=== PATIENT | female | born 1965 | race Caucasian/White ===

== ENCOUNTER 2016-08-10 12:36 | Emergency (ER) | payer MEDICAID ==
[~2016-08-10] VITALS: Ht 162.6 cm; Wt 61.2 kg
[2016-08-10 12:40] VITALS: BP 136/92; PULSE 115; RESP 22; TEMP 97.8; O2SAT 100
--- NOTE | 2016-08-10 12:44 | NUR ---
Pt placed to ER bed 04. Pt report given to JOSE Schilling.
--- NOTE | 2016-08-10 12:50 | NUR ---
ER at bedside examining patient.
--- NOTE | 2016-08-10 12:55 | NUR ---
Pt presents to ED c/o vomiting x 2 days with h/o etoh abuse.Pt vomited x 1 stomach content noted. pt ambulated w/o assist.
[2016-08-10] MEDS ORDERED: DEXAMETHASONE SOD PHOSPHATE 10 MG/ML VIAL IVP ONE (13:00)
[2016-08-10] MEDS ORDERED: ONDANSETRON HCL 4 MG/2 ML VIAL IVP ONE (13:00)
[2016-08-10] MEDS ORDERED: NACL 0.9% 1,000 ML IV ONE (13:00)
[2016-08-10] MEDS ORDERED: PROCHLORPERAZINE EDISYLATE 10 MG/2 ML VIAL IVP ONE (13:00)
[2016-08-10] MEDS ORDERED: LORazepam 2 MG/ML VIAL (FOR ER USE) IVP ONE (13:00)
[2016-08-10 13:15] LABS: BILIRUBIN,URINE 1+ (NEGATIVE); BLOOD, URINE 3+ (NEGATIVE); COLOR,URINE YELLOW (YELLOW); GLUCOSE,URINE NEGATIVE (NEGATIVE); KETONES,URINE 3+ (NEGATIVE); LEUKOCYTE ESTERASE ,URINE NEGATIVE (NEGATIVE); NITRITE, URINE POSITIVE (NEGATIVE); PROTEIN URINE 3+ (NEGATIVE)
[2016-08-10 13:22] LABS: CLARITY/URINE HAZY (CLEAR)
[2016-08-10 13:32] LABS: BACTERIA,URINE MANY /HPF (None Seen); MUCUS,URINE 1+ /LPF (None Seen)
[2016-08-10 13:33] LABS: BASOPHILS % (AUTO) 0.9 % (0.0-2.0); EOSINOPHILS % (AUTO) 0.3 % (0.0-4.0); HEMATOCRIT 49.4 % (36-48); HEMOGLOBIN 16.8 g/dL (12.0-16.0); LYMPHOCYTES # (AUTO) 1.4 K/uL (1.0-5.5); LYMPHOCYTES % (AUTO) 29.7 % (20.5-51.5); MEAN CORPUSCULAR HEMOGLOBIN 36 pg (27-31); MEAN CORPUSCULAR HGB CONC 34 % (32-36); MEAN CORPUSCULAR VOLUME 105 fL (79.0-98.0); MONOCYTES # (AUTO) 0.4 K/uL (0.0-1.0); MONOCYTES % (AUTO) 8.6 % (1.7-9.3); NEUTROPHILS # (AUTO) 2.9 K/uL (1.8-7.7); NEUTROPHILS % (AUTO) 60.5 % (40.0-70.0); PLATELET COUNT (AUTO) 170 K/uL (130-430); RED BLOOD CELL COUNT(AUTO) 4.72 MIL/uL (4.2-6.2); RED CELL DISTRIBUTION WIDTH 14.7 % (9.0-15.0); WHITE BLOOD COUNT (AUTO) 4.7 K/uL (4.8-10.8)
[2016-08-10 13:42] LABS: CALCIUM 8.2 mg/dL (8.4-11.0); CREATININE 0.73 mg/dL (0.55-1.30)
[2016-08-10 13:46] LABS: ALBUMIN 4.2 g/dL (3.4-4.8); TOTAL BILIRUBIN 0.7 mg/dL (0.0-1.0)
--- NOTE | 2016-08-10 14:00 | NUR ---
Pt medicated tolerated well.Pt reports to nausea and pain resolved.
[2016-08-10] MEDS ORDERED: POTASSIUM CHLORIDE 20 MEQ TAB.PRT.SR PO ONE (14:45)
[2016-08-10 15:10] VITALS: BP 121/74; PULSE 89; RESP 18; TEMP 97.3; O2SAT 100
--- NOTE | 2016-08-10 15:10 | NUR ---
Patient given written and verbal discharge instructions and verbalizes understanding. ER MD discussed with patient the results and treatment provided. Given copies of tests performed in ER. Patient in stable condition. ID arm band removed. IV catheter removed intact and dressing applied, no active bleeding. Rx of ZOFRAN,MACROBID given. Patient educated on pain management and to follow up with PMD. Pain Scale 0. Opportunity for questions provided and answered.
== END 2016-08-10 15:10 | disposition home or self-care (01) ==
LOC: SED 12:36
DX: N39.0 Urinary tract infection, site not specified (principal); F10.20 Alcohol dependence, uncomplicated; E78.00 Pure hypercholesterolemia, unspecified; F41.9 Anxiety disorder, unspecified
CPT/HCPCS: 36415; 80053; 81000; 82150; 83690; 85025; 87086; 93005; 96361; 96374; 96375; 99285; J0780; J1100; J2060; J2405; J7030

== ENCOUNTER 2016-09-20 14:37 | Inpatient (IN) | payer MEDICAID ==
[~2016-09-20] VITALS: Ht 165.1 cm; Wt 65.3 kg
[2016-09-20 14:37] VITALS: BP 103/69; PULSE 71; RESP 18; TEMP 97.7; O2SAT 99
--- NOTE | 2016-09-20 14:37 | NUR ---
Patient to ER bed 05 to gown for evaluation. Side rails up. Report given to JOSE Almazan.
--- NOTE | 2016-09-20 14:50 | NUR ---
Dr. Ramesh at bedside for evaluation
--- NOTE | 2016-09-20 15:01 | NUR ---
recieved Pt in bed 5. Pt stated she has been drinking more than 4 beers and 4 shots of scotch. Slow, slurred speech noted. Pt unable to keep eyes open. Pt c/o aching pain of a 10/10 on lower right buttock region. Pt denies falling down.
[2016-09-20 15:18] LABS: BASOPHILS % (AUTO) 0.8 % (0.0-2.0); EOSINOPHILS % (AUTO) 0.6 % (0.0-4.0); HEMATOCRIT 41.8 % (36-48); HEMOGLOBIN 13.9 g/dL (12.0-16.0); LYMPHOCYTES # (AUTO) 2.1 K/uL (1.0-5.5); LYMPHOCYTES % (AUTO) 51.7 % (20.5-51.5); MEAN CORPUSCULAR HEMOGLOBIN 35 pg (27-31); MEAN CORPUSCULAR HGB CONC 33 % (32-36); MEAN CORPUSCULAR VOLUME 105 fL (79.0-98.0); MONOCYTES # (AUTO) 0.3 K/uL (0.0-1.0); MONOCYTES % (AUTO) 7.2 % (1.7-9.3); NEUTROPHILS # (AUTO) 1.6 K/uL (1.8-7.7); NEUTROPHILS % (AUTO) 39.7 % (40.0-70.0); PLATELET COUNT (AUTO) 230 K/uL (130-430); RED BLOOD CELL COUNT(AUTO) 3.98 MIL/uL (4.2-6.2)
--- NOTE | 2016-09-20 15:20 | NUR ---
Pt transported to radiology for CT abd.
--- NOTE | 2016-09-20 15:35 | NUR ---
Pt returned from radiology
[2016-09-20 16:04] LABS: BILIRUBIN,URINE NEGATIVE (NEGATIVE); BLOOD, URINE 1+ (NEGATIVE); CLARITY/URINE HAZY (CLEAR); COLOR,URINE YELLOW (YELLOW); GLUCOSE,URINE NEGATIVE (NEGATIVE); KETONES,URINE TRACE (NEGATIVE); LEUKOCYTE ESTERASE ,URINE NEGATIVE (NEGATIVE); NITRITE, URINE POSITIVE (NEGATIVE); PROTEIN URINE TRACE (NEGATIVE); UROBILINOGEN,URINE 0.2 (0.2-1.0)
[2016-09-20 16:13] LABS: BARBITURATE, URINE NEGATIVE (NEG <=200); BENZODIAZEPINE, URINE POSITIVE (NEG <=150); CANNABINOID, URINE NEGATIVE (NEG <=50); COCAINE, URINE NEGATIVE (NEG <=150); METHAMPHETAMINES SCREEN,URINE NEGATIVE (NEG <=500); OPIATE, URINE POSITIVE (NEG <=100); PHENCYCLIDINE SCREEN,URINE NEGATIVE (NEG <=25); UR TRICYCLIC ANTIDEPRESSANTS NEGATIVE (NEG <=300); URINE AMPHETAMINE NEGATIVE (NEG <=500); URINE METHADONE NEGATIVE (NEG <=200); URINE OXYCODONE SCREEN NEGATIVE (NEG <=100); URINE PROPOXYPHENE SCREEN NEGATIVE (NEG <=300)
[2016-09-20 16:16] LABS: CALCIUM 8.5 mg/dL (8.4-11.0); CREATININE 0.56 mg/dL (0.55-1.30); POTASSIUM 3.9 mmol/L (3.5-5.1)
[2016-09-20 16:21] LABS: ALBUMIN 4.1 g/dL (3.4-4.8); TOTAL BILIRUBIN 0.6 mg/dL (0.0-1.0)
[2016-09-20 16:28] LABS: BACTERIA,URINE MANY /HPF (None Seen); MUCUS,URINE 1+ /LPF (None Seen); WBC,URINE 0-3 /HPF (0-3)
--- NOTE | 2016-09-20 16:44 | NUR ---
Pt returned from CT. Addendum: 09/20/16 at 1644 by LEILA data entered in error. wrong Pt
[2016-09-20] MEDS ORDERED: NACL 0.9% 1,000 ML IV ONE (16:45)
[2016-09-20] MEDS ORDERED: cefTRIAXone 1 GM IVPB PREMIX 50 ML IV ONE (16:45)
[2016-09-20] MEDS ORDERED: KETOROLAC TROMETHAMINE 30 MG VIAL IVP ONE (17:00)
[2016-09-20] MEDS ORDERED: ONDANSETRON HCL 4 MG/2 ML VIAL IVP ONE (17:00)
--- NOTE | 2016-09-20 17:00 | NUR ---
Rounds Pt resting in bed. chest rise and fall noted.
[2016-09-20] MEDS ORDERED: chlordiazePOXIDE HCL 25 MG CAPSULE PO ONE (17:45)
[2016-09-20] MEDS ORDERED: BANANA BAG 1 EA, MVI 10 ML, THIAMINE HCL 100 MG, FOLIC ACID 1 MG, MAGNESIUM SULFATE 1 G... IV ONE ×5 (17:45)
[2016-09-20] MEDS ORDERED: PARO20TA51 PO (17:47)
[2016-09-20] MEDS ORDERED: LOVA40TA75 PO (17:47)
--- NOTE | 2016-09-20 18:05 | NUR ---
Pt sitting up in bed eating dinner. Pt stated pain medication was effective. Pt stated she does not need anything at the moment.
[2016-09-20] MEDS ORDERED: FOLIC ACID 1 MG, THIAMINE HCL 100 MG, MAGNESIUM SULFATE 1 GM, MVI 10 ML in NACL 0.9% 1,... IV ONE (18:30)
--- NOTE | 2016-09-20 19:00 | NUR ---
Patient will be admitted to care of Dr. Rajan. Admitted to Tele unit. Will go to room 116A. Summary report printed. Report given to admitting RN.
--- NOTE | 2016-09-20 19:12 | NUR ---
ADMISSION NOTE Received patient from ER via bharathi, received report from raul GARCIA. Patient admitted with diagnosis of UTI AND SEPSIS. Patient oriented to hospital routine, call light, toileting and safety-patient verbalized understanding.
[2016-09-20 19:14] VITALS: BP 119/75; PULSE 80; RESP 20; TEMP 96.7; O2SAT 97
[2016-09-20 20:54] VITALS: BP 136/79; PULSE 81; RESP 18; TEMP 97.9; O2SAT 95
--- NOTE | 2016-09-20 21:37 | NUR ---
Phoned paged DR Satinder Preston regarding pain medication / .
--- NOTE | 2016-09-20 21:42 | NUR ---
TOBIN BYRD ([employer] AC CHIEF PHYSICAL THERAPIST) SPOKE WITH DELVIN
--- NOTE | 2016-09-20 22:09 | NUR ---
paged (follow-up) Paged for Mele Stevenson. Dialed , s/w Maria Elena. Stated that Dr hill is on-call for Dr Rajan.
--- NOTE | 2016-09-20 22:35 | NUR ---
paged (follow-up) Second page for Mele Stevenson. Dialed , s/w [place]. Stated that Dr Velasquez is on-call for Dr Rajan.
[2016-09-20] MEDS: FOLIC ACID 1 MG, THIAMINE HCL 100 MG, MAGNESIUM SULFATE 1 GM, MVI 10 ML in NACL 0.9% 1,... IV SCH (22:38)
[2016-09-20] MEDS ORDERED: chlordiazePOXIDE HCL 25 MG CAPSULE PO PRN (23:00)
--- NOTE | 2016-09-20 23:15 | NUR ---
New orders spoke with MD DR Velasquez / .
[2016-09-20] MEDS: LORazepam 1 MG TABLET PO PRN (23:56)
[2016-09-20] MEDS: IBUPROFEN 800 MG TABLET PO PRN (23:56)
--- NOTE | 2016-09-20 23:59 | NUR ---
LORAZEPAM 2 MG PO given for agitation / .
[2016-09-21] VITALS (8 sets, daily range): BP systolic 120–143; BP diastolic 68–96; PULSE 69–102; RESP 18–20; TEMP 97.4–98.8; O2SAT 91–96
--- NOTE | 2016-09-21 | NUR ---
Motrin 800 mg po given for back pain / .
--- NOTE | 2016-09-21 | NUR ---
Patient awake alert assist out of bed to rest room fall measures implemented / .
[2016-09-21] MEDS: chlordiazePOXIDE HCL 25 MG CAPSULE PO PRN ×3 (01:06→15:38)
--- NOTE | 2016-09-21 01:23 | NUR ---
LIBRIUM 25 MG PO given for agitation as ordered / .
--- NOTE | 2016-09-21 05:36 | NUR ---
Patient resting this hour , verbally responsive assist for position chest movement symmetrical also unlabored safety measures implemented / .
[2016-09-21] MEDS: FOLIC ACID 1 MG, THIAMINE HCL 100 MG, MAGNESIUM SULFATE 1 GM, MVI 10 ML in NACL 0.9% 1,... IV SCH (06:47)
[2016-09-21 06:49] LABS: BASOPHILS % (AUTO) 0.7 % (0.0-2.0); EOSINOPHILS # (AUTO) 0.1 K/uL (0.0-0.4); EOSINOPHILS % (AUTO) 1.2 % (0.0-4.0); HEMOGLOBIN 12.1 g/dL (12.0-16.0); LYMPHOCYTES # (AUTO) 2.8 K/uL (1.0-5.5); LYMPHOCYTES % (AUTO) 60.3 % (20.5-51.5); MEAN CORPUSCULAR HEMOGLOBIN 36 pg (27-31); MEAN CORPUSCULAR HGB CONC 35 % (32-36); MEAN CORPUSCULAR VOLUME 105 fL (79.0-98.0); MONOCYTES # (AUTO) 0.3 K/uL (0.0-1.0); MONOCYTES % (AUTO) 5.8 % (1.7-9.3); NEUTROPHILS # (AUTO) 1.5 K/uL (1.8-7.7); PLATELET COUNT (AUTO) 154 K/uL (130-430); RED BLOOD CELL COUNT(AUTO) 3.34 MIL/uL (4.2-6.2); RED CELL DISTRIBUTION WIDTH 14.1 % (9.0-15.0); WHITE BLOOD COUNT (AUTO) 4.7 K/uL (4.8-10.8)
--- NOTE | 2016-09-21 06:51 | NUR ---
New IV start 22 Gauge to right hand IVF infusing as ordered ( banana bag ) .
[2016-09-21 06:58] LABS: CALCIUM 7.8 mg/dL (8.4-11.0); CREATININE 0.58 mg/dL (0.55-1.30); POTASSIUM 3.5 mmol/L (3.5-5.1)
[2016-09-21 07:02] LABS: ALBUMIN 3.5 g/dL (3.4-4.8); PHOSPHORUS 2.5 mg/dL (2.7-4.5); TOTAL BILIRUBIN 0.7 mg/dL (0.0-1.0); TOTAL PROTEIN, SERUM 5.7 g/dL (6.4-8.3)
--- NOTE | 2016-09-21 07:30 | NUR ---
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 iv access on right hand #22 with folivite iv infusion. no sob or distress noted. call light within reach. safety measures maintained. bed in low position. informed patient to call for any assistance. both hands shaky noted.
[2016-09-21] MEDS: LORazepam 1 MG TABLET PO PRN ×3 (08:50→21:12)
[2016-09-21] MEDS: IBUPROFEN 800 MG TABLET PO PRN ×2 (08:51→15:38)
--- NOTE | 2016-09-21 08:56 | NUR ---
DUE MEDICATION GIVEN OREDERED. MADE COMFORTABLE.
[2016-09-21] MEDS ORDERED: cefTRIAXone 1 GM in D5W 50 ML IV SCH ×2 (09:00→17:00)
--- NOTE | 2016-09-21 09:30 | NUR ---
Placed bedside commode in the room. assisted the patient to the commode, very unsteady and shaky. had large bm soft greenish brown stool noted.
--- NOTE | 2016-09-21 10:00 | NUR ---
REMOVED RIGHT AC. PER REQUEST OF THE PATIENT.
--- NOTE | 2016-09-21 10:59 | NUR ---
Bed linen changed. made comfortable. no pain or distress noted.
--- NOTE | 2016-09-21 11:45 | NUR ---
ROUNDS: PATIENT IS STABLE. NO PAIN NO AGITATION NOTED.
--- NOTE | 2016-09-21 12:43 | NUR ---
ASSISTED AT THE BEDSIDE COMMODE. ABLE TO VOID
--- NOTE | 2016-09-21 13:40 | NUR ---
ativan 2 mg po given
--- NOTE | 2016-09-21 13:45 | NUR ---
CALLED DR BYRD FOR ORDERS
--- NOTE | 2016-09-21 15:00 | NUR ---
DR LÓPEZ CAME AND EVALUATE THE PATIENT. AND MADE ORDERS.
--- NOTE | 2016-09-21 15:30 | NUR ---
LIBRUIM PO AND MOTRIN PO GIVEN. SALINE LOCK IV ACCESS
--- NOTE | 2016-09-21 16:19 | NUR ---
RESTING IN BED STABLE.
[2016-09-21] MEDS ORDERED: PARoxetine HCL 20 MG TABLET PO ONE (16:45)
[2016-09-21] MEDS: traMADol HCL HCL 50 MG TABLET (ULTRAM) PO PRN ×2 (16:48→21:13)
--- NOTE | 2016-09-21 17:06 | NUR ---
PATIENT IS STABLE BUT STILL BACK PAIN. TRAMADOL PO GIVEN. MADE COMFORTABLE.
--- NOTE | 2016-09-21 18:11 | NUR ---
able to walk to the hallway with assist maría GARCIA assisted to walk x 2. but unsteady. but stable.
--- NOTE | 2016-09-21 19:23 | NUR ---
sbar report given to incoming nurse Raza GARCIA
--- NOTE | 2016-09-21 20:15 | NUR ---
Patient awake alert assist out of bed to rest room , no SOB skin dry warm fall measures implemented & tolerated .
--- NOTE | 2016-09-21 23:12 | NUR ---
ULTRAM 50 MG PO administer for General pain / & helpful .
--- NOTE | 2016-09-21 23:23 | NUR ---
LORAZEPAM 2 MG PO given for agitation & helpful , assist patient as needed .
--- NOTE | 2016-09-21 23:55 | NUR ---
Hourly Rounding fall measures taken implemented & patient awake with call smith / .
[2016-09-22] MEDS: chlordiazePOXIDE HCL 25 MG CAPSULE PO PRN ×2 (01:27→09:27)
[2016-09-22 04:18] VITALS: BP 146/93; PULSE 72; RESP 18; TEMP 96.4; O2SAT 96
--- NOTE | 2016-09-22 04:29 | NUR ---
Patient awake on and off HOB elevated , assist for position change call smith with patient fall measures implemented no complaints made / .
--- NOTE | 2016-09-22 04:31 | NUR ---
LIBRIUM 25 MG PO administer and helpful for agitation , continue to monitor .
--- NOTE | 2016-09-22 05:41 | NUR ---
Patient awake assist up out of bed to rest room , ambulatory verbally indicative & Librium 25 mg helpful for anxiety / .
[2016-09-22] MEDS: LORazepam 1 MG TABLET PO PRN (06:33)
--- NOTE | 2016-09-22 07:35 | NUR ---
Initial Note Received patient from assistant shift supervisor nurse, patient is alert an oriented, no signs of distress, breathing is even and unlabored, patient is not complaining of any pain at this time, assessment complete, patient has a IV in her right hand, saline lock, reeducated patient on use of call light and to call if assistance is needed, patient verbalized understanding, call smith left in patient's hand, bed in lowest position, two side rails up, bed alarm on, fall precautions in place, will continue to monitor patient.
[2016-09-22 08:00] VITALS: BP 137/94; PULSE 83; RESP 16; TEMP 97.9; O2SAT 99
--- NOTE | 2016-09-22 08:15 | NUR ---
MEDICATIONS patient given morning medication, educated patient on potential side effect of morning med, patient verbalized understanding, no other needs at this time, instructed patient to use call light if assistance is needed, patient verbalized understanding, call smith left in patient's hand, bed in lowest position, two side rails up, bed alarm on, fall precautions in place, will continue to monitor patient.
[2016-09-22] MEDS ORDERED: PARoxetine HCL 20 MG TABLET PO SCH (09:00)
--- NOTE | 2016-09-22 09:25 | NUR ---
RN ROUNDS patient is lying in bed; patient states she is feeling anxious will give a prn medication, fall precautions in place, will continue to monitor patient.
[2016-09-22] MEDS: traMADol HCL HCL 50 MG TABLET (ULTRAM) PO PRN (09:45)
[2016-09-22] MEDS ORDERED: LEVO500T20 PO (09:48)
--- NOTE | 2016-09-22 11:10 | NUR ---
RN ROUNDS Patient is resting in bed, no signs of distress, no complaints of pain, no other needs at this time will continue to monitor, fall precautions in place.
[2016-09-22 11:20] VITALS: BP 137/94; PULSE 82; RESP 16; TEMP 98; O2SAT 98
--- NOTE | 2016-09-22 11:55 | NUR ---
D/C Patient Patient given medication reconciliation form and D/C instructions. Exit Care provided. Patient verbalized understanding. MD discussed with patient the results and treatment provided. Ambulatory with steady gait for discharge to home. Patient in stable condition, ID band removed. IV catheter removed, intact and dressing applied, no active bleeding. Rx of Librum given. Patient educated on pain management. All belongings sent with patient.
== END 2016-09-22 11:55 | disposition home or self-care (01) | DRG 775 ==
LOC: SED 14:37 → STU 18:29
PROVIDERS: ADMIT Internal Medicine; ATTEND Internal Medicine
DX: F10.229 Alcohol dependence with intoxication, unspecified (principal); F10.239 Alcohol dependence with withdrawal, unspecified; K76.0 Fatty (change of) liver, not elsewhere classified; N39.0 Urinary tract infection, site not specified; F41.9 Anxiety disorder, unspecified; F32.9 Major depressive disorder, single episode, unspecified; E78.5 Hyperlipidemia, unspecified; M54.5 Low back pain; E78.00 Pure hypercholesterolemia, unspecified; Z79.899 Other long term (current) drug therapy
CPT/HCPCS: 36415; 80053; 80307; 81000-TC; 83605; 83690-TC; 83735-TC; 84100-TC; 85025; 87040-TC; 87086; 87186-TC; 87230-TC; 96365; 96367; 96375; 99291; J0696; J1885; J2405; J3411; J3475; J3490; J7030; J7060

== ENCOUNTER 2016-10-14 13:08 | Emergency (ER) | payer MEDICAID ==
[~2016-10-14] VITALS: Ht 162.6 cm; Wt 63.5 kg
[~2016-10-14 13:08] MED LIST: LEVO500T20 PO; LOVA40TA75 PO; PARO20TA51 PO
[2016-10-14 13:24] VITALS: BP_SYST 114
[2016-10-14 14:33] LABS: BASOPHILS # (AUTO) 0.1 K/uL (0.0-0.2); EOSINOPHILS # (AUTO) 0.1 K/uL (0.0-0.4); MONOCYTES # (AUTO) 0.4 K/uL (0.0-1.0); WHITE BLOOD COUNT (AUTO) 4.5 K/uL (4.8-10.8)
[2016-10-14 14:40] LABS: CALCIUM 9.1 mg/dL (8.4-11.0); CREATININE 0.6 mg/dL (0.55-1.30); POTASSIUM 3.5 mmol/L (3.5-5.1)
[2016-10-14 14:45] LABS: ALBUMIN 4.4 g/dL (3.4-4.8); TOTAL BILIRUBIN 0.4 mg/dL (0.0-1.0); TOTAL PROTEIN, SERUM 7.5 g/dL (6.4-8.3)
[2016-10-14 14:49] LABS: BASOPHILS % (AUTO) 2.4 % (0.0-2.0); EOSINOPHILS % (AUTO) 2.1 % (0.0-4.0); HEMATOCRIT 41.2 % (36-48); LYMPHOCYTES # (AUTO) 2.3 K/uL (1.0-5.5); MEAN CORPUSCULAR HEMOGLOBIN 36 pg (27-31); MEAN CORPUSCULAR HGB CONC 34 % (32-36); MEAN CORPUSCULAR VOLUME 106 fL (79.0-98.0); MONOCYTES % (AUTO) 9.3 % (1.7-9.3); NEUTROPHILS # (AUTO) 1.6 K/uL (1.8-7.7); NEUTROPHILS % (AUTO) 35.2 % (40.0-70.0)
[2016-10-14 14:53] LABS: PLATELET COUNT (AUTO) 131 K/uL (130-430)
[2016-10-14 15:20] LABS: BLOOD, URINE 1+ (NEGATIVE); CLARITY/URINE HAZY (CLEAR); COLOR,URINE AMBER (YELLOW); GLUCOSE,URINE NEGATIVE (NEGATIVE); KETONES,URINE NEGATIVE (NEGATIVE); LEUKOCYTE ESTERASE ,URINE NEGATIVE (NEGATIVE); NITRITE, URINE NEGATIVE (NEGATIVE); PH,URINE 5.5 (5.0-8.0); PROTEIN URINE 2+ (NEGATIVE); UROBILINOGEN,URINE 0.2 (0.2-1.0)
[2016-10-14 15:36] LABS: BARBITURATE, URINE NEGATIVE (NEG <=200); BENZODIAZEPINE, URINE POSITIVE (NEG <=150); CANNABINOID, URINE NEGATIVE (NEG <=50); COCAINE, URINE NEGATIVE (NEG <=150); METHAMPHETAMINES SCREEN,URINE NEGATIVE (NEG <=500); OPIATE, URINE POSITIVE (NEG <=100); URINE AMPHETAMINE NEGATIVE (NEG <=500); URINE METHADONE NEGATIVE (NEG <=200)
[2016-10-14 15:37] LABS: BILIRUBIN,URINE NEGATIVE (NEGATIVE); PHENCYCLIDINE SCREEN,URINE NEGATIVE (NEG <=25); UR TRICYCLIC ANTIDEPRESSANTS NEGATIVE (NEG <=300); URINE OXYCODONE SCREEN NEGATIVE (NEG <=100); URINE PROPOXYPHENE SCREEN NEGATIVE (NEG <=300)
[2016-10-14 15:57] LABS: BACTERIA,URINE FEW /HPF (None Seen); CALCIUM OXALATE CRYSTALS,UR 30-50 /HPF (None Seen); MUCUS,URINE 3+ /LPF (None Seen)
[2016-10-14 16:50] VITALS: BP_SYST 120
== END 2016-10-14 16:50 | disposition home or self-care (01) ==
LOC: SED 13:08
DX: E86.0 Dehydration (principal); E78.00 Pure hypercholesterolemia, unspecified; F41.9 Anxiety disorder, unspecified; Z86.59 Personal history of other mental and behavioral disorders
CPT/HCPCS: 36415; 71010; 80053; 80307; 81000; 82140; 85025; 93970; 99285; G0482; J7040

== ENCOUNTER 2016-10-25 05:35 | Emergency (ER) | payer MEDICAID ==
[~2016-10-25] VITALS: Ht 165.1 cm; Wt 63.5 kg
[2016-10-25 05:38] VITALS: BP_SYST 158
[2016-10-25] MEDS ORDERED: AMOXICILLIN 500 MG CAPSULE PO ONE (06:00)
[2016-10-25] MEDS ORDERED: IPRATROPIUM BROM 0.5 MG/2.5 ML VIAL.NEB (ATROVENT) IH ONE (06:00)
[2016-10-25] MEDS ORDERED: PROMETHAZINE 6.25 MG/ CODEINE 10 MG/ 5 ML PO ONE (06:00)
[2016-10-25] MEDS ORDERED: NACL 0.9% 1,000 ML IV ONE (06:00)
[2016-10-25] MEDS ORDERED: methylPREDNISolone SOD SUCC/PF 62.5 MG/ML VIAL IVP ONE (06:00)
[2016-10-25] MEDS ORDERED: LevALBUTEROL HCL 1.25 MG/0.5 ML *CONC.* VIAL.NEB (XOPENEX CONC.) INH ONE ×2 (06:00→07:00)
[2016-10-25] MEDS ORDERED: methylPREDNISolone SOD SUCC/PF 62.5 MG/ML VIAL ONE (06:09)
[2016-10-25] MEDS ORDERED: chlordiazePOXIDE HCL 25 MG CAPSULE PO ONE (06:45)
[2016-10-25 07:03] LABS: BASOPHILS # (AUTO) 0.1 K/uL (0.0-0.2); BASOPHILS % (AUTO) 0.8 % (0.0-2.0); EOSINOPHILS % (AUTO) 0.1 % (0.0-4.0); HEMATOCRIT 36.8 % (36-48); HEMOGLOBIN 12.4 g/dL (12.0-16.0); LYMPHOCYTES # (AUTO) 3.5 K/uL (1.0-5.5); LYMPHOCYTES % (AUTO) 45.2 % (20.5-51.5); MEAN CORPUSCULAR HEMOGLOBIN 36 pg (27-31); MEAN CORPUSCULAR HGB CONC 34 % (32-36); MEAN CORPUSCULAR VOLUME 106 fL (79.0-98.0); MONOCYTES # (AUTO) 0.9 K/uL (0.0-1.0); MONOCYTES % (AUTO) 12.1 % (1.7-9.3); NEUTROPHILS # (AUTO) 3.3 K/uL (1.8-7.7); NEUTROPHILS % (AUTO) 41.8 % (40.0-70.0); PLATELET COUNT (AUTO) 252 K/uL (130-430); RED BLOOD CELL COUNT(AUTO) 3.46 MIL/uL (4.2-6.2); RED CELL DISTRIBUTION WIDTH 13.5 % (9.0-15.0); WHITE BLOOD COUNT (AUTO) 7.8 K/uL (4.8-10.8)
[2016-10-25 07:11] LABS: CALCIUM 8.7 mg/dL (8.4-11.0); CREATININE 0.66 mg/dL (0.55-1.30)
[2016-10-25 07:13] LABS: POTASSIUM 2.5 mmol/L (3.5-5.1)
[2016-10-25] MEDS ORDERED: POTASSIUM CHLORIDE 20 MEQ TAB.PRT.SR PO ONE (08:15)
[2016-10-25] MEDS ORDERED: KETOROLAC TROMETHAMINE 30 MG VIAL IVP ONE (08:30)
[2016-10-25] MEDS ORDERED: IBUPROFEN 800 MG TABLET PO ONE ×2 (08:30→08:45)
[2016-10-25 08:50] VITALS: BP_SYST 128
== END 2016-10-25 08:50 | disposition home or self-care (01) ==
LOC: SED 05:35
DX: J20.9 Acute bronchitis, unspecified (principal); J04.0 Acute laryngitis; E78.00 Pure hypercholesterolemia, unspecified; F41.9 Anxiety disorder, unspecified; F10.239 Alcohol dependence with withdrawal, unspecified; Y90.9 Presence of alcohol in blood, level not specified
CPT/HCPCS: 36415; 71010; 80048; 83880; 85025; 94640; 96361; 96374; 99285; J2930; J1885

== ENCOUNTER 2016-12-08 01:40 | Emergency (ER) | payer MEDICAID ==
[~2016-12-08] VITALS: Ht 165.1 cm; Wt 61.2 kg
[2016-12-08 02:14] VITALS: BP_SYST 108
--- NOTE | 2016-12-08 02:14 | NUR ---
Patient to ER bed 05 to gown for evaluation. Side rails up. Report given to JOSE Vázquez.
--- NOTE | 2016-12-08 02:15 | NUR ---
Patient AAO x4, sitting in bed c/o cough, shortness of breath from cough, and leg pain 5/10. Patient smells of alcohol and states she has been drinking alcohol "because of my leg pain," patient also states she "ran out of my librium, so I stopped taking them." Patient c/o bilateral leg swelling, no acute distress noted. Skin intact, denies chest pain, denies Nausea or vomiting. Will continue to monitor.
--- NOTE | 2016-12-08 02:18 | NUR ---
ER at bedside examining patient.
[2016-12-08] MEDS ORDERED: CHLO25CA10 PO (02:19)
[2016-12-08 02:42] LABS: BASOPHILS # (AUTO) 0.1 K/uL (0.0-0.2); EOSINOPHILS # (AUTO) 0.1 K/uL (0.0-0.4); EOSINOPHILS % (AUTO) 1.1 % (0.0-4.0); HEMATOCRIT 39.2 % (36-48); HEMOGLOBIN 13.2 g/dL (12.0-16.0); LYMPHOCYTES # (AUTO) 2.8 K/uL (1.0-5.5); LYMPHOCYTES % (AUTO) 37.1 % (20.5-51.5); MEAN CORPUSCULAR HEMOGLOBIN 35 pg (27-31); MEAN CORPUSCULAR HGB CONC 34 % (32-36); MEAN CORPUSCULAR VOLUME 104 fL (79.0-98.0); MONOCYTES # (AUTO) 0.3 K/uL (0.0-1.0); MONOCYTES % (AUTO) 3.8 % (1.7-9.3); NEUTROPHILS # (AUTO) 4.3 K/uL (1.8-7.7); PLATELET COUNT (AUTO) 170 K/uL (130-430); RED BLOOD CELL COUNT(AUTO) 3.75 MIL/uL (4.2-6.2); RED CELL DISTRIBUTION WIDTH 14.1 % (9.0-15.0); WHITE BLOOD COUNT (AUTO) 7.6 K/uL (4.8-10.8)
[2016-12-08 02:51] LABS: CALCIUM 9.2 mg/dL (8.4-11.0); CREATININE 0.61 mg/dL (0.55-1.30); POTASSIUM 4.1 mmol/L (3.5-5.1)
[2016-12-08 02:54] LABS: INR 0.8 (0.8-1.2); PROTHROMBIN TIME 9.1 SECS (9.5-12.5)
[2016-12-08 02:56] LABS: ALBUMIN 3.9 g/dL (3.4-4.8); TOTAL BILIRUBIN 0.2 mg/dL (0.0-1.0); TOTAL PROTEIN, SERUM 7.2 g/dL (6.4-8.3)
--- NOTE | 2016-12-08 03:18 | NUR ---
Patient resting quietly. No acute distress noted. Vital signs within normal range.
[2016-12-08 03:32] VITALS: BP_SYST 108
--- NOTE | 2016-12-08 03:32 | NUR ---
Patient given written and verbal discharge instructions and verbalizes understanding. ER MD discussed with patient the results and treatment provided. Patient in stable condition. ID arm band removed. Rx of Promethazine/dextromethorphan, Amoxicillin, and Librium given. Patient educated on pain management and to follow up with PMD. Pain Scale 0/10. Opportunity for questions provided and answered.
[2016-12-08] MEDS ORDERED: cefTRIAXone 1 GM VIAL ONE (15:48)
[2016-12-08] MEDS ORDERED: LIDOCAINE 1%, 20 ML MDV 20 ML ONE (15:49)
== END 2016-12-08 03:32 | disposition home or self-care (01) ==
LOC: SED 01:40
DX: J18.9 Pneumonia, unspecified organism (principal); F10.129 Alcohol abuse with intoxication, unspecified; E78.00 Pure hypercholesterolemia, unspecified; F17.200 Nicotine dependence, unspecified, uncomplicated; Z79.899 Other long term (current) drug therapy
CPT/HCPCS: 36415; 71010; 80053; 83880; 85025; 85610; 85730; 99285; G0482; J0696; J2001

== ENCOUNTER 2017-01-03 03:52 | Emergency (ER) | payer MEDICAID ==
[~2017-01-03] VITALS: Ht 162.6 cm; Wt 61.2 kg
[2017-01-03 03:52] VITALS: BP_SYST 96
[~2017-01-03 03:52] MED LIST changes: +CHLO25CA10 PO; -LEVO500T20 PO
[2017-01-03] MEDS ORDERED: NACL 0.9% 1,000 ML IV ONE (04:15)
[2017-01-03 06:54] VITALS: BP_SYST 110
== END 2017-01-03 06:54 | disposition home or self-care (01) ==
LOC: SED 03:52
DX: S69.92XA Unspecified injury of left wrist, hand and finger(s), initial encounter (principal); E78.00 Pure hypercholesterolemia, unspecified; F41.9 Anxiety disorder, unspecified; W01.0XXA Fall on same level from slipping, tripping and stumbling without subsequent striking against object, initial encounter; Y93.89 Activity, other specified; Y92.099 Unspecified place in other non-institutional residence as the place of occurrence of the external cause; Y99.8 Other external cause status
CPT/HCPCS: 29125; 73130; 96360; 99284; J7030

== ENCOUNTER 2017-04-22 11:45 | Inpatient (IN) | payer MEDICAID ==
[~2017-04-22] VITALS: Ht 165.1 cm; Wt 63.5 kg
[2017-04-22 11:45] VITALS: BP_SYST 108
[2017-04-22] MEDS ORDERED: THIAMINE HCL 100 MG/ML VIAL ONE (12:24)
[2017-04-22] MEDS ORDERED: MAGNESIUM SULFATE 1 GM/2 ML VIAL ONE (12:24)
[2017-04-22] MEDS ORDERED: FOLIC ACID 1 MG, THIAMINE HCL 100 MG, MAGNESIUM SULFATE 1 GM, MVI 10 ML in NACL 0.9% 1,... IV ONE (12:30)
[2017-04-22 12:34] LABS: BILIRUBIN,URINE NEGATIVE (NEGATIVE); CLARITY/URINE CLEAR (CLEAR); COLOR,URINE YELLOW (YELLOW); GLUCOSE,URINE NEGATIVE (NEGATIVE); KETONES,URINE 1+ (NEGATIVE); LEUKOCYTE ESTERASE ,URINE NEGATIVE (NEGATIVE); NITRITE, URINE NEGATIVE (NEGATIVE); PH,URINE 5.5 (5.0-8.0); PROTEIN URINE TRACE (NEGATIVE); UROBILINOGEN,URINE 0.2 (0.2-1.0)
[2017-04-22 12:35] LABS: BLOOD, URINE TRACE (NEGATIVE)
[2017-04-22 12:37] LABS: BASOPHILS % (AUTO) 0.8 % (0.0-2.0); EOSINOPHILS % (AUTO) 1.1 % (0.0-4.0); HEMATOCRIT 38.5 % (36-48); HEMOGLOBIN 13.2 g/dL (12.0-16.0); LYMPHOCYTES # (AUTO) 1.9 K/uL (1.0-5.5); LYMPHOCYTES % (AUTO) 44.6 % (20.5-51.5); MEAN CORPUSCULAR HEMOGLOBIN 36 pg (27-31); MEAN CORPUSCULAR HGB CONC 34 % (32-36); MEAN CORPUSCULAR VOLUME 105 fL (79.0-98.0); MONOCYTES # (AUTO) 0.4 K/uL (0.0-1.0); MONOCYTES % (AUTO) 8.8 % (1.7-9.3); NEUTROPHILS # (AUTO) 1.8 K/uL (1.8-7.7); NEUTROPHILS % (AUTO) 44.7 % (40.0-70.0); PLATELET COUNT (AUTO) 128 K/uL (130-430); RED BLOOD CELL COUNT(AUTO) 3.66 MIL/uL (4.2-6.2); RED CELL DISTRIBUTION WIDTH 13.9 % (9.0-15.0); WHITE BLOOD COUNT (AUTO) 4.1 K/uL (4.8-10.8)
[2017-04-22 12:52] LABS: BACTERIA,URINE RARE /HPF (None Seen); MUCUS,URINE 1+ /LPF (None Seen); WBC,URINE 0-3 /HPF (0-3)
[2017-04-22 12:55] LABS: BENZODIAZEPINE, URINE POSITIVE (NEG <=150)
[2017-04-22 12:56] LABS: BARBITURATE, URINE NEGATIVE (NEG <=200); CANNABINOID, URINE NEGATIVE (NEG <=50); COCAINE, URINE NEGATIVE (NEG <=150); METHAMPHETAMINES SCREEN,URINE NEGATIVE (NEG <=500); OPIATE, URINE NEGATIVE (NEG <=100); PHENCYCLIDINE SCREEN,URINE NEGATIVE (NEG <=25); UR TRICYCLIC ANTIDEPRESSANTS NEGATIVE (NEG <=300); URINE AMPHETAMINE NEGATIVE (NEG <=500); URINE METHADONE NEGATIVE (NEG <=200); URINE OXYCODONE SCREEN NEGATIVE (NEG <=100); URINE PROPOXYPHENE SCREEN NEGATIVE (NEG <=300)
[2017-04-22 13:02] LABS: ALANINE AMINOTRANSFERASE 125 U/L (12-78); ALBUMIN 3.8 g/dL (3.4-4.8); ANION GAP 17 (5-15); ASPARTATE AMINOTRANSFERASE 255 U/L (10-37); CALCIUM 8.7 mg/dL (8.4-11.0); CHLORIDE 100 mmol/L (98-107); GLUCOSE 77 mg/dL (70-99); POTASSIUM 3.1 mmol/L (3.5-5.1); SODIUM SERUM 144 mmol/L (136-145); TOTAL BILIRUBIN 0.9 mg/dL (0.0-1.0)
[2017-04-22 13:08] LABS: GFR AFRICAN AMERICAN 166 mL/min (>90)
[2017-04-22 13:09] LABS: ACETAMINOPHEN < 1 ug/mL (1-30)
[2017-04-22 13:13] LABS: UREA NITROGEN, BLOOD 9 mg/dL (8-21)
[2017-04-22 13:21] LABS: ALCOHOL, BLOOD 413 mg/dL (<10)
[2017-04-22] MEDS ORDERED: POTASSIUM CHLORIDE 20 MEQ TAB.PRT.SR PO ONE (13:45)
[2017-04-22] MEDS ORDERED: MAGNESIUM OXIDE 400 MG TABLET PO ONE (13:45)
[2017-04-22] MEDS ORDERED: HYDR-2470 PO (14:15)
[2017-04-22] MEDS ORDERED: [UNRECOGNIZED DRUG - CODE] PO (14:15)
[2017-04-22] MEDS ORDERED: HYDR50CA PO (14:15)
[2017-04-22] MEDS ORDERED: LORA-259 PO (14:15)
[2017-04-22] MEDS ORDERED: IBUP-1969 PO (14:15)
[2017-04-22 14:29] VITALS: BP_SYST 107
[2017-04-22 14:30] VITALS: BP_SYST 107
[2017-04-22] MEDS ORDERED: THIAMINE HCL 100 MG TABLET PO ONE (17:00)
[2017-04-22] MEDS ORDERED: chlordiazePOXIDE HCL 25 MG CAPSULE PO SCH (17:15)
[2017-04-22] MEDS ORDERED: POTASSIUM CHLORIDE 20 MEQ/PKT PACKET PO ONE (17:15)
[2017-04-22] MEDS ORDERED: LORazepam 1 MG TABLET PO SCH (17:15)
[2017-04-22] MEDS: FAMOTIDINE PF 20 MG/2 ML VIAL IVP SCH ×2 (18:00→18:25)
[2017-04-22] MEDS: ONDANSETRON HCL 4 MG/2 ML VIAL IVP PRN (18:02)
[2017-04-22] MEDS: IBUPROFEN 600 MG TABLET PO PRN (18:05)
[2017-04-22] MEDS: LR 1,000 ML IV SCH (18:14)
[2017-04-22] MEDS: LORazepam 2 MG/ML VIAL IVP PRN (18:28)
[2017-04-22 20:30] VITALS: BP_SYST 105
[2017-04-22] MEDS: POTASSIUM CHLORIDE 20 MEQ/PKT PACKET PO SCH (20:32)
[2017-04-22] MEDS: chlordiazePOXIDE HCL 25 MG CAPSULE PO SCH (20:33)
[2017-04-22] MEDS ORDERED: LEVOFLOXACIN 500 MG/D5W 100 ML IV SCH (21:00)
[2017-04-22] MEDS ORDERED: LEVOFLOXACIN 500 MG/D5W 100 ML IV ONE (23:00)
[2017-04-23] VITALS (7 sets, daily range): BP systolic 120–158
[2017-04-23] MEDS: LORazepam 2 MG/ML VIAL IVP PRN ×6 (00:40→23:27)
[2017-04-23] MEDS: LR 1,000 ML IV SCH ×2 (04:30→15:59)
[2017-04-23] MEDS: FAMOTIDINE PF 20 MG/2 ML VIAL IVP SCH ×3 (05:06→17:56)
[2017-04-23 06:35] LABS: BASOPHILS % (AUTO) 0.9 % (0.0-2.0); EOSINOPHILS # (AUTO) 0.1 K/uL (0.0-0.4); EOSINOPHILS % (AUTO) 1.4 % (0.0-4.0); HEMOGLOBIN 12.8 g/dL (12.0-16.0); LYMPHOCYTES # (AUTO) 1.5 K/uL (1.0-5.5); LYMPHOCYTES % (AUTO) 38.7 % (20.5-51.5); MEAN CORPUSCULAR HEMOGLOBIN 35 pg (27-31); MEAN CORPUSCULAR HGB CONC 34 % (32-36); MEAN CORPUSCULAR VOLUME 105 fL (79.0-98.0); MONOCYTES # (AUTO) 0.3 K/uL (0.0-1.0); MONOCYTES % (AUTO) 7.3 % (1.7-9.3); NEUTROPHILS # (AUTO) 1.9 K/uL (1.8-7.7); NEUTROPHILS % (AUTO) 51.7 % (40.0-70.0); PLATELET COUNT (AUTO) 118 K/uL (130-430); RED BLOOD CELL COUNT(AUTO) 3.63 MIL/uL (4.2-6.2); WHITE BLOOD COUNT (AUTO) 3.8 K/uL (4.8-10.8)
[2017-04-23 07:08] LABS: BILIRUBIN,URINE NEGATIVE (NEGATIVE); BLOOD, URINE NEGATIVE (NEGATIVE); CLARITY/URINE SL HAZY (CLEAR); COLOR,URINE YELLOW (YELLOW); GLUCOSE,URINE 1+ (NEGATIVE); KETONES,URINE 1+ (NEGATIVE); LEUKOCYTE ESTERASE ,URINE NEGATIVE (NEGATIVE); NITRITE, URINE NEGATIVE (NEGATIVE); PROTEIN URINE TRACE (NEGATIVE)
[2017-04-23 07:13] LABS: ALBUMIN 3.5 g/dL (3.4-4.8); CALCIUM 8.5 mg/dL (8.4-11.0); CREATININE 0.58 mg/dL (0.55-1.30); POTASSIUM 4.2 mmol/L (3.5-5.1); TOTAL BILIRUBIN 0.8 mg/dL (0.0-1.0)
[2017-04-23] MEDS: ONDANSETRON HCL 4 MG/2 ML VIAL IVP PRN ×2 (08:19→13:24)
[2017-04-23] MEDS: chlordiazePOXIDE HCL 25 MG CAPSULE PO SCH ×3 (08:21→20:40)
[2017-04-23] MEDS: PARoxetine HCL 20 MG TABLET PO SCH (08:21)
[2017-04-23] MEDS: FOLIC ACID 1 MG TABLET PO SCH (08:21)
[2017-04-23] MEDS: POTASSIUM CHLORIDE 20 MEQ/PKT PACKET PO SCH ×2 (08:21→20:41)
[2017-04-23] MEDS ORDERED: THIAMINE HCL 100 MG TABLET PO SCH (09:00)
[2017-04-23] MEDS: IBUPROFEN 600 MG TABLET PO PRN (13:24)
[2017-04-23] MEDS ORDERED: cloNIDine HCL 0.1 MG TABLET PO ONE (13:45)
[2017-04-23] MEDS: MULTIVITAMINS TAB 1 TABLET PO SCH (20:41)
[2017-04-23] MEDS: cloNIDine HCL 0.1 MG TABLET PO SCH (20:42)
[2017-04-24] MEDS: LORazepam 2 MG/ML VIAL IVP PRN ×4 (04:27→18:33)
[2017-04-24 04:30] VITALS: BP_SYST 147
[2017-04-24] MEDS: FAMOTIDINE PF 20 MG/2 ML VIAL IVP SCH ×2 (05:54→18:32)
[2017-04-24 08:00] VITALS: BP_SYST 144
[2017-04-24] MEDS: LR 1,000 ML IV SCH (08:48)
[2017-04-24] MEDS: POTASSIUM CHLORIDE 20 MEQ/PKT PACKET PO SCH ×2 (08:49→20:57)
[2017-04-24] MEDS: MULTIVITAMINS TAB 1 TABLET PO SCH ×2 (08:50→20:56)
[2017-04-24] MEDS: PARoxetine HCL 20 MG TABLET PO SCH (08:50)
[2017-04-24] MEDS: FOLIC ACID 1 MG TABLET PO SCH (08:50)
[2017-04-24] MEDS: chlordiazePOXIDE HCL 25 MG CAPSULE PO SCH ×3 (08:50→20:58)
[2017-04-24] MEDS: cloNIDine HCL 0.1 MG TABLET PO SCH ×2 (08:51→21:00)
[2017-04-24] MEDS ORDERED: THIAMINE HCL 100 MG TABLET PO SCH (09:00)
[2017-04-24] MEDS ORDERED: MULTIVITAMINS TAB 1 TABLET PO SCH (09:00)
[2017-04-24 12:19] VITALS: BP_SYST 127
[2017-04-24] MEDS ORDERED: LOPERAMIDE HCL 2 MG CAPSULE PO PRN (14:45)
[2017-04-24] MEDS ORDERED: LOPERAMIDE HCL 2 MG CAPSULE PO ONE (14:45)
[2017-04-24 15:27] LABS: BASOPHILS % (AUTO) 0.7 % (0.0-2.0); EOSINOPHILS # (AUTO) 0.1 K/uL (0.0-0.4); EOSINOPHILS % (AUTO) 2.3 % (0.0-4.0); HEMATOCRIT 39.8 % (36-48); HEMOGLOBIN 12.9 g/dL (12.0-16.0); LYMPHOCYTES # (AUTO) 1.7 K/uL (1.0-5.5); LYMPHOCYTES % (AUTO) 36.5 % (20.5-51.5); MEAN CORPUSCULAR HEMOGLOBIN 34 pg (27-31); MEAN CORPUSCULAR HGB CONC 32 % (32-36); MEAN CORPUSCULAR VOLUME 106 fL (79.0-98.0); MONOCYTES # (AUTO) 0.4 K/uL (0.0-1.0); MONOCYTES % (AUTO) 7.9 % (1.7-9.3); NEUTROPHILS # (AUTO) 2.3 K/uL (1.8-7.7); NEUTROPHILS % (AUTO) 52.6 % (40.0-70.0); PLATELET COUNT (AUTO) 133 K/uL (130-430); RED BLOOD CELL COUNT(AUTO) 3.76 MIL/uL (4.2-6.2); RED CELL DISTRIBUTION WIDTH 13.8 % (9.0-15.0); WHITE BLOOD COUNT (AUTO) 4.5 K/uL (4.8-10.8)
[2017-04-24 15:43] LABS: CALCIUM 9.4 mg/dL (8.4-11.0); CREATININE 0.64 mg/dL (0.55-1.30); POTASSIUM 4.2 mmol/L (3.5-5.1)
[2017-04-24 15:48] LABS: ALBUMIN 3.8 g/dL (3.4-4.8); TOTAL BILIRUBIN 0.7 mg/dL (0.0-1.0)
[2017-04-24 16:11] VITALS: BP_SYST 128
[2017-04-24 16:46] VITALS: BP_SYST 124
[2017-04-24 21:26] VITALS: BP_SYST 130
[2017-04-25] MEDS ORDERED: FOLIC ACID 1 MG TABLET PO SCH (09:00)
== END 2017-04-24 22:10 | disposition short-term general hospital (02) | DRG 775 ==
LOC: SED 11:45 → STU 13:57
PROVIDERS: ADMIT Internal Medicine; ATTEND Internal Medicine
DX: F10.229 Alcohol dependence with intoxication, unspecified (principal); F10.239 Alcohol dependence with withdrawal, unspecified; F33.2 Major depressive disorder, recurrent severe without psychotic features; K70.10 Alcoholic hepatitis without ascites; E87.6 Hypokalemia; F41.9 Anxiety disorder, unspecified; F17.210 Nicotine dependence, cigarettes, uncomplicated; E78.5 Hyperlipidemia, unspecified; Y90.8 Blood alcohol level of 240 mg/100 ml or more; Z79.899 Other long term (current) drug therapy; Z56.0 Unemployment, unspecified
CPT/HCPCS: 36415; 36600; 71010; 80053; 80307; 81000-TC; 81003; 81025; 82140-TC; 82803-TC; 83735-TC; 84443-TC; 85025; 87086; 93005; 96365; 97116-GP; 99285; G0480; G0481; G0482; J1956; J2060; J2405; J3411; J3475; J3490; J7030; J7060; J7120

== ENCOUNTER 2017-09-08 16:18 | Emergency (ER) | payer MEDICAID ==
[~2017-09-08] VITALS: Ht 170.2 cm; Wt 70.3 kg
[~2017-09-08 16:18] MED LIST changes: +HYDR-2470 PO; +IBUP-1969 PO; +LORA-259 PO; -LOVA40TA75 PO
[2017-09-08 16:20] VITALS: BP_SYST 98
[2017-09-08 16:47] LABS: HEMATOCRIT 40.3 % (36-48); MEAN CORPUSCULAR HEMOGLOBIN 37 pg (27-31); MEAN CORPUSCULAR HGB CONC 35 % (32-36); MEAN CORPUSCULAR VOLUME 106 fL (79.0-98.0); PLATELET COUNT (AUTO) 334 K/uL (130-430); RED BLOOD CELL COUNT(AUTO) 3.79 MIL/uL (4.2-6.2); RED CELL DISTRIBUTION WIDTH 13.7 % (9.0-15.0); WHITE BLOOD COUNT (AUTO) 8.6 K/uL (4.8-10.8)
[2017-09-08] MEDS ORDERED: GABA-531 PO (16:53)
[2017-09-08] MEDS ORDERED: LIP20 PO (16:58)
[2017-09-08] MEDS ORDERED: METO-442 PO (16:58)
[2017-09-08] MEDS ORDERED: NALT50TA PO (16:58)
[2017-09-08 17:00] LABS: ANION GAP 12 (5-15); CALCIUM 8.7 mg/dL (8.4-11.0); CHLORIDE 103 mmol/L (98-107); CREATININE 0.52 mg/dL (0.55-1.30); GLUCOSE 118 mg/dL (70-99); POTASSIUM 4.1 mmol/L (3.5-5.1); SODIUM SERUM 138 mmol/L (136-145); UREA NITROGEN, BLOOD 13 mg/dL (8-21)
[2017-09-08 17:01] LABS: PROTHROMBIN TIME 9.8 SECS (9.5-12.5)
[2017-09-08 17:09] LABS: BAND % (MANUAL) 1 % (0-6); LYMPHOCYTES % (MANUAL) 57 % (20-46); MONOCYTES % (MANUAL) 12 % (0-11)
[2017-09-08 17:10] LABS: EOSINOPHILS % (MANUAL) 1 % (0-7); GFR AFRICAN AMERICAN 159 mL/min (>90)
[2017-09-08 17:16] LABS: BASOPHILS % (MANUAL) 0 % (0-2)
[2017-09-08 17:18] LABS: ALANINE AMINOTRANSFERASE 51 U/L (12-78); ALBUMIN 3.4 g/dL (3.4-4.8); ASPARTATE AMINOTRANSFERASE 71 U/L (10-37); LIPASE 270 U/L (73-393); TOTAL BILIRUBIN 0.2 mg/dL (0.0-1.0)
[2017-09-08 17:21] LABS: HCG,QUANTITATIVE 4 mIU/ML (0-6)
[2017-09-08 17:22] LABS: ACETAMINOPHEN < 1 ug/mL (1-30)
[2017-09-08 17:29] LABS: ALCOHOL, BLOOD 442 mg/dL (<10)
[2017-09-08] MEDS: NACL 0.9% 1,000 ML IV ONE (17:59)
[2017-09-08] MEDS ORDERED: ONDANSETRON HCL 4 MG/2 ML VIAL ONE (18:36)
[2017-09-08] MEDS: ONDANSETRON HCL 4 MG/2 ML VIAL IVP ONE (18:47)
[2017-09-08] MEDS: FOLIC ACID 1 MG, THIAMINE HCL 100 MG, MAGNESIUM SULFATE 1 GM, MVI 10 ML in NACL 0.9% 1,... IV ONE (18:48)
[2017-09-08 20:21] VITALS: BP_SYST 101
== END 2017-09-08 20:21 | disposition home or self-care (01) ==
LOC: SED 16:18
DX: F10.129 Alcohol abuse with intoxication, unspecified (principal); E78.00 Pure hypercholesterolemia, unspecified; F41.9 Anxiety disorder, unspecified; Z79.899 Other long term (current) drug therapy; Y90.8 Blood alcohol level of 240 mg/100 ml or more
CPT/HCPCS: 36415; 51701; 80053; 82550; 83690; 84484; 84702; 85007; 85027; 85610; 85730; 96365; 96366; 96375; 99285; G0480; G0481; G0482; J2405; J3411; J3475; J3490; J7030

== ENCOUNTER 2018-03-19 14:41 | Inpatient (IN) | payer MEDICAID ==
[~2018-03-19] VITALS: Ht 162.6 cm; Wt 59.0 kg
[2018-03-19] VITALS (10 sets, daily range): BP systolic 68–126
[~2018-03-19 14:41] MED LIST changes: +ACET325T53 PO; +ATII2 IVP; +BUDE0.5A INH; -CHLO25CA10 PO; +DOCU-144 PO; +GABA-531 PO; -HYDR-2470 PO; -IBUP-1969 PO; +IPRA3AMP9 INH; +LIB25 PO; +LIP20 PO; -LORA-259 PO; +METO-442 PO; +NALT50TA PO; -PARO20TA51 PO; +PROI40 IVP
[2018-03-19] MEDS ORDERED: NACL 0.9% 1,000 ML IV ONE ×2 (15:00→17:15)
[2018-03-19] MEDS ORDERED: NALOXONE HCL 2 MG/2 ML SYR IVP ONE (15:00)
[2018-03-19 15:09] LABS: BASOPHILS # (AUTO) 0.1 K/uL (0.0-0.2); BASOPHILS % (AUTO) 0.9 % (0.0-2.0); EOSINOPHILS % (AUTO) 0.2 % (0.0-4.0); HEMATOCRIT 37.8 % (36-48); HEMOGLOBIN 12.5 g/dL (12.0-16.0); LYMPHOCYTES # (AUTO) 2.5 K/uL (1.0-5.5); LYMPHOCYTES % (AUTO) 34.3 % (20.5-51.5); MEAN CORPUSCULAR HEMOGLOBIN 33 pg (27-31); MEAN CORPUSCULAR HGB CONC 33 % (32-36); MEAN CORPUSCULAR VOLUME 100 fL (79.0-98.0); MONOCYTES # (AUTO) 0.4 K/uL (0.0-1.0); MONOCYTES % (AUTO) 5.4 % (1.7-9.3); NEUTROPHILS # (AUTO) 4.3 K/uL (1.8-7.7); NEUTROPHILS % (AUTO) 59.2 % (40.0-70.0); PLATELET COUNT (AUTO) 303 K/uL (130-430); RED CELL DISTRIBUTION WIDTH 13.7 % (9.0-15.0); WHITE BLOOD COUNT (AUTO) 7.3 K/uL (4.8-10.8)
[2018-03-19 15:18] LABS: CALCIUM 7.6 mg/dL (8.4-11.0); CREATININE 2.47 mg/dL (0.55-1.30); POTASSIUM 3.8 mmol/L (3.5-5.1)
[2018-03-19 15:20] LABS: INR 0.9 (0.8-1.2); PROTHROMBIN TIME 9.4 SECS (9.5-12.5)
[2018-03-19 15:22] LABS: ALBUMIN 2.9 g/dL (3.4-4.8); TOTAL BILIRUBIN 0.3 mg/dL (0.0-1.0)
[2018-03-19 15:46] LABS: BILIRUBIN,URINE NEGATIVE (NEGATIVE); BLOOD, URINE NEGATIVE (NEGATIVE); CLARITY/URINE CLEAR (CLEAR); COLOR,URINE YELLOW (YELLOW); GLUCOSE,URINE NEGATIVE (NEGATIVE); KETONES,URINE NEGATIVE (NEGATIVE); LEUKOCYTE ESTERASE ,URINE NEGATIVE (NEGATIVE); NITRITE, URINE NEGATIVE (NEGATIVE); PH,URINE 5.5 (5.0-8.0); PROTEIN URINE NEGATIVE (NEGATIVE); UROBILINOGEN,URINE 0.2 (0.2-1.0)
[2018-03-19] MEDS ORDERED: NACL 0.9% 1,000 ML IV STA (16:58)
[2018-03-19 17:59] LABS: BARBITURATE, URINE NEGATIVE (NEG <=200); BENZODIAZEPINE, URINE NEGATIVE (NEG <=150); COCAINE, URINE NEGATIVE (NEG <=150); METHAMPHETAMINES SCREEN,URINE NEGATIVE (NEG <=500); URINE AMPHETAMINE NEGATIVE (NEG <=500); URINE METHADONE NEGATIVE (NEG <=200)
[2018-03-19 18:00] LABS: CANNABINOID, URINE NEGATIVE (NEG <=50); OPIATE, URINE POSITIVE (NEG <=100); PHENCYCLIDINE SCREEN,URINE NEGATIVE (NEG <=25); UR TRICYCLIC ANTIDEPRESSANTS NEGATIVE (NEG <=300); URINE OXYCODONE SCREEN NEGATIVE (NEG <=100); URINE PROPOXYPHENE SCREEN NEGATIVE (NEG <=300)
[2018-03-19] MEDS ORDERED: NACL 0.9% 1,000 ML IV SCH (18:00)
[2018-03-19] MEDS: NACL 0.9% 1,000 ML IV SCH ×3 (18:08→20:34)
[2018-03-19] MEDS ORDERED: LORazepam 2 MG/ML VIAL IVP PRN ×2 (18:45→19:15)
[2018-03-19] MEDS: DIPHENHYDRAMINE HCL 25 MG CAPSULE PO SCH ×2 (18:45→20:31)
[2018-03-19] MEDS ORDERED: GABAPENTIN 300 MG CAPSULE PO PRN (19:15)
[2018-03-19] MEDS ORDERED: HYDROCORTISONE SOD SUCC 100 MG/2 ML VIAL IVP SCH (19:15)
[2018-03-19] MEDS ORDERED: THIAMINE HCL 100 MG in NS 50 ML IV SCH (19:30)
[2018-03-19 19:38] LABS: CREATININE 1.35 mg/dL (0.55-1.30); POTASSIUM 4.8 mmol/L (3.5-5.1)
[2018-03-19 19:48] LABS: CALCIUM 6.7 mg/dL (8.4-11.0)
[2018-03-19] MEDS: GABAPENTIN 300 MG CAPSULE PO SCH (20:30)
[2018-03-19] MEDS: LORazepam 1 MG TABLET PO SCH (20:31)
[2018-03-19] MEDS: chlordiazePOXIDE HCL 25 MG CAPSULE PO SCH (20:32)
[2018-03-19] MEDS: DOCUSATE SODIUM 100 MG CAPSULE PO SCH (20:32)
[2018-03-19] MEDS: CHOLECALCIFEROL (VITAMIN D3) 2,000 UNIT TABLET PO SCH (20:33)
[2018-03-19] MEDS: LR 1,000 ML IV SCH (20:35)
[2018-03-19] MEDS: PANTOPRAZOLE SODIUM 40 MG/VIAL (PROTONIX) IVP SCH (20:43)
[2018-03-19] MEDS: CALCIUM CARBONATE 500 MG/ TAB.CHEW PO SCH (20:43)
[2018-03-19] MEDS ORDERED: CALCIUM CARBONATE 500 MG/ TAB.CHEW PO SCH (21:00)
[2018-03-19] MEDS ORDERED: THIAMINE HCL 100 MG/ML VIAL ONE (23:06)
[2018-03-19] MEDS: IPRATROPIUM/ALBUTEROL SULFATE 3 ML AMPUL.NEB INH SCH (23:33)
[2018-03-20] VITALS (15 sets, daily range): BP systolic 94–129
[2018-03-20] MEDS ORDERED: HYDROCORTISONE SOD SUCC 100 MG/2 ML VIAL IVP SCH
[2018-03-20] MEDS: TEMAZEPAM 15 MG CAPSULE PO PRN ×2 (00:07→23:40)
[2018-03-20] MEDS: IPRATROPIUM/ALBUTEROL SULFATE 3 ML AMPUL.NEB INH SCH ×6 (03:51→23:00)
[2018-03-20] MEDS: LR 1,000 ML IV SCH ×2 (05:48→16:50)
[2018-03-20 06:20] LABS: BASOPHILS # (AUTO) 0.1 K/uL (0.0-0.2); BASOPHILS % (AUTO) 1.4 % (0.0-2.0); EOSINOPHILS % (AUTO) 0.1 % (0.0-4.0); HEMATOCRIT 35.3 % (36-48); LYMPHOCYTES # (AUTO) 1.1 K/uL (1.0-5.5); LYMPHOCYTES % (AUTO) 20.4 % (20.5-51.5); MEAN CORPUSCULAR HEMOGLOBIN 34 pg (27-31); MEAN CORPUSCULAR HGB CONC 34 % (32-36); MEAN CORPUSCULAR VOLUME 100 fL (79.0-98.0); MONOCYTES # (AUTO) 0.1 K/uL (0.0-1.0); MONOCYTES % (AUTO) 2.7 % (1.7-9.3); NEUTROPHILS % (AUTO) 75.4 % (40.0-70.0); PLATELET COUNT (AUTO) 217 K/uL (130-430); RED BLOOD CELL COUNT(AUTO) 3.52 MIL/uL (4.2-6.2); WHITE BLOOD COUNT (AUTO) 5.3 K/uL (4.8-10.8)
[2018-03-20 06:32] LABS: INR 0.9 (0.8-1.2); PROTHROMBIN TIME 9.6 SECS (9.5-12.5)
[2018-03-20 06:51] LABS: ALBUMIN 2.9 g/dL (3.4-4.8); CALCIUM 7.6 mg/dL (8.4-11.0); CREATININE 0.74 mg/dL (0.55-1.30); FREE T4 (FREE THYROXINE) 0.5 ng/dL (0.6-1.6); POTASSIUM 4.1 mmol/L (3.5-5.1); THYROID STIMULATING HORMONE 0.23 uIu/mL (0.34-4.82); TOTAL BILIRUBIN 0.5 mg/dL (0.0-1.0)
[2018-03-20] MEDS: chlordiazePOXIDE HCL 25 MG CAPSULE PO SCH ×3 (08:45→20:48)
[2018-03-20] MEDS: PANTOPRAZOLE SODIUM 40 MG/VIAL (PROTONIX) IVP SCH ×2 (08:45→20:48)
[2018-03-20] MEDS: CHOLECALCIFEROL (VITAMIN D3) 2,000 UNIT TABLET PO SCH (08:45)
[2018-03-20] MEDS: DIPHENHYDRAMINE HCL 25 MG CAPSULE PO SCH ×4 (08:46→20:49)
[2018-03-20] MEDS: LORazepam 1 MG TABLET PO SCH ×4 (08:46→20:49)
[2018-03-20] MEDS: ATORVASTATIN 20 MG TABLET PO SCH (08:46)
[2018-03-20] MEDS: GABAPENTIN 300 MG CAPSULE PO SCH ×2 (08:46→20:49)
[2018-03-20] MEDS: CALCIUM CARBONATE 500 MG/ TAB.CHEW PO SCH ×3 (08:46→20:49)
[2018-03-20] MEDS: DOCUSATE SODIUM 100 MG CAPSULE PO SCH ×2 (08:47→20:48)
[2018-03-20] MEDS ORDERED: THIAMINE HCL 100 MG TABLET PO SCH (09:00)
[2018-03-20] MEDS ORDERED: FOLIC ACID 1 MG TABLET PO SCH (09:00)
[2018-03-20] MEDS ORDERED: THIAMINE HCL 100 MG in NS 50 ML IV ONE (13:00)
[2018-03-21 00:12] VITALS: BP_SYST 111
[2018-03-21] MEDS: LR 1,000 ML IV SCH ×2 (00:45→04:43)
[2018-03-21] MEDS: IPRATROPIUM/ALBUTEROL SULFATE 3 ML AMPUL.NEB INH SCH ×4 (02:56→15:00)
[2018-03-21 07:07] LABS: BASOPHILS % (AUTO) 0.3 % (0.0-2.0); EOSINOPHILS # (AUTO) 0.1 K/uL (0.0-0.4); EOSINOPHILS % (AUTO) 1.3 % (0.0-4.0); HEMATOCRIT 33.3 % (36-48); HEMOGLOBIN 11.4 g/dL (12.0-16.0); LYMPHOCYTES # (AUTO) 2.2 K/uL (1.0-5.5); LYMPHOCYTES % (AUTO) 32.1 % (20.5-51.5); MEAN CORPUSCULAR HEMOGLOBIN 34 pg (27-31); MEAN CORPUSCULAR HGB CONC 34 % (32-36); MEAN CORPUSCULAR VOLUME 99 fL (79.0-98.0); MONOCYTES # (AUTO) 0.3 K/uL (0.0-1.0); MONOCYTES % (AUTO) 5.1 % (1.7-9.3); NEUTROPHILS # (AUTO) 4.2 K/uL (1.8-7.7); NEUTROPHILS % (AUTO) 61.2 % (40.0-70.0); PLATELET COUNT (AUTO) 174 K/uL (130-430); RED BLOOD CELL COUNT(AUTO) 3.38 MIL/uL (4.2-6.2); RED CELL DISTRIBUTION WIDTH 14.3 % (9.0-15.0); WHITE BLOOD COUNT (AUTO) 6.8 K/uL (4.8-10.8)
[2018-03-21 08:08] LABS: ALBUMIN 2.6 g/dL (3.4-4.8); CALCIUM 8.7 mg/dL (8.4-11.0); CREATININE 0.56 mg/dL (0.55-1.30); POTASSIUM 3.2 mmol/L (3.5-5.1); TOTAL BILIRUBIN 0.5 mg/dL (0.0-1.0)
[2018-03-21 08:29] VITALS: BP_SYST 125
[2018-03-21] MEDS ORDERED: THIAMINE HCL 100 MG TABLET PO SCH (09:00)
[2018-03-21] MEDS: DOCUSATE SODIUM 100 MG CAPSULE PO SCH (09:00)
[2018-03-21] MEDS ORDERED: FOLIC ACID 1 MG TABLET PO SCH (09:00)
[2018-03-21] MEDS: DIPHENHYDRAMINE HCL 25 MG CAPSULE PO SCH ×3 (09:17→17:10)
[2018-03-21] MEDS: GABAPENTIN 300 MG CAPSULE PO SCH (09:17)
[2018-03-21] MEDS: chlordiazePOXIDE HCL 25 MG CAPSULE PO SCH ×3 (09:17→17:10)
[2018-03-21] MEDS: PANTOPRAZOLE SODIUM 40 MG/VIAL (PROTONIX) IVP SCH (09:17)
[2018-03-21] MEDS: ATORVASTATIN 20 MG TABLET PO SCH (09:17)
[2018-03-21] MEDS: LORazepam 1 MG TABLET PO SCH ×3 (09:18→17:10)
[2018-03-21] MEDS: CHOLECALCIFEROL (VITAMIN D3) 2,000 UNIT TABLET PO SCH (09:18)
[2018-03-21] MEDS: CALCIUM CARBONATE 500 MG/ TAB.CHEW PO SCH ×2 (09:19→16:07)
[2018-03-21 12:10] VITALS: BP_SYST 146
[2018-03-21] MEDS ORDERED: POTASSIUM CHLORIDE 20 MEQ TAB.PRT.SR PO ONE (13:45)
[2018-03-21] MEDS ORDERED: amLODIPine BESYLATE 5 MG TABLET PO ONE (14:15)
[2018-03-21] MEDS ORDERED: AMLO5TAB4 PO (16:03)
[2018-03-21] MEDS ORDERED: POTA20TA83 PO (16:04)
[2018-03-21 16:15] VITALS: BP_SYST 160
[2018-03-21 18:11] VITALS: BP_SYST 156
[2018-03-21] MEDS ORDERED: POTASSIUM CHLORIDE 20 MEQ TAB.PRT.SR PO SCH (21:00)
[2018-03-22] MEDS ORDERED: amLODIPine BESYLATE 5 MG TABLET PO SCH (09:00)
== END 2018-03-21 18:48 | disposition home or self-care (01) | DRG 469 ==
LOC: SED 14:41 → SIC 16:58 → STU 03-20 16:31
PROVIDERS: ADMIT Internal Medicine; ATTEND Internal Medicine
DX: N17.0 Acute kidney failure with tubular necrosis (principal); E44.0 Moderate protein-calorie malnutrition; T78.2XXA Anaphylactic shock, unspecified, initial encounter; E83.51 Hypocalcemia; E78.5 Hyperlipidemia, unspecified; F10.10 Alcohol abuse, uncomplicated; F17.210 Nicotine dependence, cigarettes, uncomplicated; G89.29 Other chronic pain; I10 Essential (primary) hypertension; J44.9 Chronic obstructive pulmonary disease, unspecified; T46.4X5A Adverse effect of angiotensin-converting-enzyme inhibitors, initial encounter; Z79.891 Long term (current) use of opiate analgesic; Z82.49 Family history of ischemic heart disease and other diseases of the circulatory system; E78.00 Pure hypercholesterolemia, unspecified; E87.6 Hypokalemia; Z68.22 Body mass index [BMI] 22.0-22.9, adult
CPT/HCPCS: 36415; 71045; 80048; 80053; 80307; 81003; 82550-TC; 84439; 84443-TC; 84484; 85025; 85610-TC; 85730-TC; 87081; 93005; 93306; 94640; 96361; 96374; 99291; C9113; G0482; J1720; J2310; J3411; J7030; J7120; J7620; Q0163

== ENCOUNTER 2018-05-30 16:09 | Emergency (ER) | payer MEDICAID ==
[~2018-05-30] VITALS: Ht 162.6 cm; Wt 60.3 kg
[~2018-05-30 16:09] MED LIST changes: +AMLO5TAB4 PO; -ATII2 IVP; -LIB25 PO; +POTA20TA83 PO; -PROI40 IVP
[2018-05-30 16:34] VITALS: BP_SYST 141
--- NOTE | 2018-05-30 16:46 | NUR ---
Pt placed in bed 7
[2018-05-30] MEDS ORDERED: NACL 0.9% 1,000 ML IV ONE (16:54)
[2018-05-30] MEDS ORDERED: LORazepam 2 MG/ML VIAL (FOR ER USE) IVP ONE ×2 (17:00→19:45)
[2018-05-30] MEDS ORDERED: FOLIC ACID 1 MG, THIAMINE HCL 100 MG, MAGNESIUM SULFATE 1 GM, MVI 10 ML in NACL 0.9% 1,... IV ONE (17:00)
[2018-05-30] MEDS ORDERED: ONDANSETRON HCL 4 MG/2 ML VIAL IVP ONE (17:00)
--- NOTE | 2018-05-30 17:00 | NUR ---
Pt AAOx4 presents to ED c/o vomiting x 2 days r/t new prescription of antibiotics to treat dx of PNA from PMD. Pt currently showing generalized tremors; pt states "I drink heavily and I get like this when I haven't had a drink in a while." Skin dry and flaky. No other injuries/complaints per pt/noted. Will continue to monitor.
--- NOTE | 2018-05-30 17:30 | NUR ---
Banana bag IVF, NS 1 L IVF, Ativan 1mg IVP, Zofran 8mg IVP administered. Pt tolerated well. No adverse reactions noted.
--- NOTE | 2018-05-30 17:36 | NUR ---
Pt assisted to bedpan to give urine sample. Pt tolerated well.
[2018-05-30 17:56] LABS: BILIRUBIN,URINE NEGATIVE (NEGATIVE); BLOOD, URINE TRACE (NEGATIVE); CLARITY/URINE CLEAR (CLEAR); COLOR,URINE YELLOW (YELLOW); GLUCOSE,URINE NEGATIVE (NEGATIVE); KETONES,URINE TRACE (NEGATIVE); LEUKOCYTE ESTERASE ,URINE NEGATIVE (NEGATIVE); NITRITE, URINE NEGATIVE (NEGATIVE); PROTEIN URINE 2+ (NEGATIVE); UROBILINOGEN,URINE 0.2 (0.2-1.0)
[2018-05-30 18:00] LABS: BASOPHILS % (AUTO) 0.8 % (0.0-2.0); EOSINOPHILS % (AUTO) 0.5 % (0.0-4.0); HEMATOCRIT 43.2 % (36-48); HEMOGLOBIN 14.9 g/dL (12.0-16.0); LYMPHOCYTES # (AUTO) 1.1 K/uL (1.0-5.5); LYMPHOCYTES % (AUTO) 26.6 % (20.5-51.5); MEAN CORPUSCULAR HEMOGLOBIN 35 pg (27-31); MEAN CORPUSCULAR HGB CONC 34 % (32-36); MEAN CORPUSCULAR VOLUME 102 fL (79.0-98.0); MONOCYTES # (AUTO) 0.3 K/uL (0.0-1.0); MONOCYTES % (AUTO) 6.5 % (1.7-9.3); NEUTROPHILS # (AUTO) 2.7 K/uL (1.8-7.7); NEUTROPHILS % (AUTO) 65.6 % (40.0-70.0); PLATELET COUNT (AUTO) 192 K/uL (130-430); RED BLOOD CELL COUNT(AUTO) 4.23 MIL/uL (4.2-6.2); RED CELL DISTRIBUTION WIDTH 15.1 % (9.0-15.0); WHITE BLOOD COUNT (AUTO) 4.1 K/uL (4.8-10.8)
[2018-05-30 18:21] LABS: CALCIUM 7.9 mg/dL (8.4-11.0); CREATININE 0.45 mg/dL (0.55-1.30); POTASSIUM 3.4 mmol/L (3.5-5.1)
[2018-05-30 18:25] LABS: ALBUMIN 3.4 g/dL (3.4-4.8); PROTHROMBIN TIME 10.4 SECS (9.5-12.5); TOTAL BILIRUBIN 0.5 mg/dL (0.0-1.0)
[2018-05-30 18:30] LABS: BACTERIA,URINE FEW /HPF (None Seen); MUCUS,URINE None Seen /LPF (None Seen); WBC,URINE 0-3 /HPF (0-3); YEAST,URINE None Seen /HPF (None Seen)
--- NOTE | 2018-05-30 18:34 | NUR ---
Pt sleeping comfortably in bed with no signs of distress. Will continue to monitor.
--- NOTE | 2018-05-30 19:37 | NUR ---
Pt states she feels uneasy and presenting with tremors; pt requested another dose of Ativan to "calm her nerves." Nicole OFFICE MAIL CLERK notified. Orders to be received.
--- NOTE | 2018-05-30 20:00 | NUR ---
ATivan 1mg IVP administered. Pt tolerated well. No adverse reactions noted.
--- NOTE | 2018-05-30 20:12 | NUR ---
Patient given written and verbal discharge instructions and verbalizes understanding. ER ER RN BAUDILIO discussed with patient the results and treatment provided. Patient in stable condition. ID arm band removed. IV catheter removed intact and dressing applied, no active bleeding. NO Rx given. Patient educated on pain management and to follow up with PMD. Pain Scale 0. Opportunity for questions provided and answered. Medication side effect fact sheet provided.
[2018-05-30 21:01] VITALS: BP_SYST 127
== END 2018-05-30 21:01 | disposition home or self-care (01) ==
LOC: SED 16:09
DX: F10.239 Alcohol dependence with withdrawal, unspecified (principal); R11.10 Vomiting, unspecified; J18.9 Pneumonia, unspecified organism; F17.210 Nicotine dependence, cigarettes, uncomplicated; R03.0 Elevated blood-pressure reading, without diagnosis of hypertension; E78.00 Pure hypercholesterolemia, unspecified; F41.9 Anxiety disorder, unspecified; F32.9 Major depressive disorder, single episode, unspecified; Z88.8 Allergy status to other drugs, medicaments and biological substances; Z79.899 Other long term (current) drug therapy
CPT/HCPCS: 36415; 71045; 80053; 81000; 82150; 83690; 84702; 85025; 85610; 85730; 87040; 93005; 96365; 96375; 96376; 99284; J2060; J2405; J7030

== ENCOUNTER 2018-06-01 01:13 | Inpatient (IN) | payer MEDICAID ==
[2018-06-01] VITALS (8 sets, daily range): BP systolic 111–137
[~2018-06-01] VITALS: Ht 162.6 cm; Wt 60.3 kg
--- NOTE | 2018-06-01 01:15 | NUR ---
Patient to ED via ALS squad 64 with new onset seizure. 2 reported seizures in last two days. Hx of ETOH dependence. Patient had 2 minute witnessed tonic/clonic seizure. Postictal post seizure. GCS 14 on arrival. Bit tongue during onset. Bleeding controlled. No obvious deformities. -Trauma. Denies head, neck or back pain. Pupils PERRL. Denies illicit drug use. 20g to left forearm on arrival.
--- NOTE | 2018-06-01 01:15 | NUR ---
Patient to ER bed 2 to gown for evaluation. Side rails up. Report given to JOSE Orlando.
--- NOTE | 2018-06-01 01:16 | NUR ---
ED MD Rucker at bedside for medical evaluation.
[2018-06-01] MEDS ORDERED: NACL 0.9% 1,000 ML IV ONE (01:18)
[2018-06-01] MEDS ORDERED: LORazepam 2 MG/ML VIAL (FOR ER USE) IVP ONE (01:30)
[2018-06-01] MEDS ORDERED: PANTOPRAZOLE SODIUM 40 MG/VIAL (PROTONIX) IVP ONE (01:30)
[2018-06-01] MEDS ORDERED: LORazepam 1 MG TABLET PO ONE (01:30)
[2018-06-01] MEDS ORDERED: ONDANSETRON HCL 4 MG/2 ML VIAL IVP ONE (01:30)
[2018-06-01 01:41] LABS: BASOPHILS # (AUTO) 0.2 K/uL (0.0-0.2); BASOPHILS % (AUTO) 2.4 % (0.0-2.0); EOSINOPHILS % (AUTO) 0.4 % (0.0-4.0); HEMATOCRIT 43.3 % (36-48); HEMOGLOBIN 14.6 g/dL (12.0-16.0); LYMPHOCYTES # (AUTO) 2.5 K/uL (1.0-5.5); LYMPHOCYTES % (AUTO) 35.6 % (20.5-51.5); MEAN CORPUSCULAR HEMOGLOBIN 35 pg (27-31); MEAN CORPUSCULAR HGB CONC 34 % (32-36); MEAN CORPUSCULAR VOLUME 103 fL (79.0-98.0); MONOCYTES # (AUTO) 0.6 K/uL (0.0-1.0); MONOCYTES % (AUTO) 7.8 % (1.7-9.3); NEUTROPHILS # (AUTO) 3.8 K/uL (1.8-7.7); NEUTROPHILS % (AUTO) 53.8 % (40.0-70.0); PLATELET COUNT (AUTO) 181 K/uL (130-430); RED BLOOD CELL COUNT(AUTO) 4.21 MIL/uL (4.2-6.2); RED CELL DISTRIBUTION WIDTH 15.1 % (9.0-15.0); WHITE BLOOD COUNT (AUTO) 7.1 K/uL (4.8-10.8)
[2018-06-01 02:03] LABS: PROTHROMBIN TIME 10.5 SECS (9.5-12.5)
--- NOTE | 2018-06-01 02:06 | NUR ---
Critical lab value reported. Potassium level of 2.6. ED MD Rucker made aware.
[2018-06-01 02:08] LABS: ALBUMIN 3.9 g/dL (3.4-4.8); CALCIUM 8.6 mg/dL (8.4-11.0); CREATININE 0.79 mg/dL (0.55-1.30); TOTAL BILIRUBIN 0.8 mg/dL (0.0-1.0)
[2018-06-01 02:10] LABS: POTASSIUM 2.6 mmol/L (3.5-5.1)
--- NOTE | 2018-06-01 02:20 | NUR ---
ED MD Moraek at bedside reassessing patient.
[2018-06-01] MEDS ORDERED: KETOROLAC TROMETHAMINE 15 MG VIAL IVP ONE (02:30)
[2018-06-01] MEDS ORDERED: POTASSIUM CHLORIDE 20 MEQ TAB.PRT.SR PO ONE ×2 (02:30→10:15)
[2018-06-01] MEDS ORDERED: KCL 20 mEq in 100 mL (PREMIX) 100 ML IV ONE (02:30)
[2018-06-01] MEDS ORDERED: LORazepam 2 MG/ML VIAL IVP PRN (02:45)
--- NOTE | 2018-06-01 02:56 | NUR ---
Patient off unit for CT of head. Accompanied by radiology staff.
[2018-06-01] MEDS ORDERED: PHENYTOIN SODIUM INJ 500 MG in NS 100 ML IV SCH (03:00)
--- NOTE | 2018-06-01 03:05 | NUR ---
pt return from CT. Pt remains stable.
--- NOTE | 2018-06-01 03:11 | NUR ---
ADMISSION NOTE Received patient from ER via bharathi, received report from BIANCA GARCIA. Patient admitted with diagnosis of NEW ONSET SEIZURE. Patient oriented to hospital routine, call light, toileting and safety-patient verbalized understanding.
--- NOTE | 2018-06-01 03:11 | NUR ---
Patient will be admitted to care of Dr. Menchaca. Admitted to Telemetry unit. Will go to room 114A. Belongings list completed. Summary report printed. Report will be given at bedside. Transfer to telemetry via ACLS protocol. Licensed nurse present. IV present no signs or symptoms of infiltration.
--- NOTE | 2018-06-01 03:15 | NUR ---
RN Notes Patient A/O x 4. Pt on RA, breathing even and unlabored. K-rider infusing to LFA, no infiltration noted. Pt denies pain or any discomfort at this time. Seizure and aspiration precautions in place. No distress noted. Will continue to monitor.
--- NOTE | 2018-06-01 03:36 | NUR ---
CALLED DR. CABA FOR CONSULT @[phone]. SPOKE TO MARA. NURSE IS AWARE.
[2018-06-01] MEDS ORDERED: PHENYTOIN SODIUM 250 MG/5 ML INJ. VIAL IV ONE (03:52)
--- NOTE | 2018-06-01 04:45 | NUR ---
RN Notes Assisted patient to bedpan. Pt cleaned and helped reposition for comfort. Pt tolerated care well.
--- NOTE | 2018-06-01 07:08 | NUR ---
Closing Notes: Patient stable, denies pain or any discomfort. No distress noted. Report given to Francois GARCIA.
--- NOTE | 2018-06-01 07:10 | NUR ---
REPORT: Received from JOSE Linder for continuation of care.
--- NOTE | 2018-06-01 08:07 | NUR ---
AM ROUNDS: Patient is complaining of headache. Will medicate as ordered.
--- NOTE | 2018-06-01 08:11 | NUR ---
PATIENT COMMUNICATION: Patient states that she "feels her pneumonia in her back and thighs." States she was diagnosed with pneumonia three days ago. Informed her that her chest X-ray is clear. Patient verbalized understanding. States that she uses "[place] 10" for pain, or that a "shot" is effective.
--- NOTE | 2018-06-01 08:12 | NUR ---
PAGED: Dr. Menchaca paged regarding pain medication. Spoke with Francois from his exchange at [phone].
[2018-06-01] MEDS ORDERED: PHENYTOIN 100 MG CAPSULE PO SCH (09:00)
--- NOTE | 2018-06-01 09:09 | NUR ---
CALLBACK: Dr. Menchaca called back. Orders received. Chest X-ray results read to him.
[2018-06-01] MEDS ORDERED: HYDROcodone/ACETAMIN 5-325 MG TAB (NORCO/ VICODIN) PO PRN (09:15)
[2018-06-01] MEDS ORDERED: ACETAMINOPHEN 325 MG TABLET PO PRN ×2 (09:15→10:15)
[2018-06-01] MEDS ORDERED: HYDROcodone/ACETAMIN 10-325 MG TAB PO PRN ×2 (09:15→15:00)
[2018-06-01] MEDS ORDERED: NALTREXONE HCL PO SCH (10:15)
[2018-06-01 10:43] LABS: CALCIUM 8.2 mg/dL (8.4-11.0); CREATININE 0.53 mg/dL (0.55-1.30); POTASSIUM 3.1 mmol/L (3.5-5.1)
[2018-06-01 10:44] LABS: BASOPHILS # (AUTO) 0.1 K/uL (0.0-0.2); BASOPHILS % (AUTO) 1.6 % (0.0-2.0); EOSINOPHILS % (AUTO) 0.5 % (0.0-4.0); HEMATOCRIT 40.1 % (36-48); HEMOGLOBIN 13.6 g/dL (12.0-16.0); LYMPHOCYTES # (AUTO) 1.5 K/uL (1.0-5.5); LYMPHOCYTES % (AUTO) 25.5 % (20.5-51.5); MEAN CORPUSCULAR HEMOGLOBIN 35 pg (27-31); MEAN CORPUSCULAR HGB CONC 34 % (32-36); MEAN CORPUSCULAR VOLUME 103 fL (79.0-98.0); MONOCYTES # (AUTO) 0.4 K/uL (0.0-1.0); NEUTROPHILS # (AUTO) 3.9 K/uL (1.8-7.7); NEUTROPHILS % (AUTO) 65.4 % (40.0-70.0); PLATELET COUNT (AUTO) 156 K/uL (130-430); RED BLOOD CELL COUNT(AUTO) 3.89 MIL/uL (4.2-6.2); RED CELL DISTRIBUTION WIDTH 14.6 % (9.0-15.0); WHITE BLOOD COUNT (AUTO) 5.9 K/uL (4.8-10.8)
[2018-06-01 10:47] LABS: ALBUMIN 3.3 g/dL (3.4-4.8); TOTAL BILIRUBIN 0.8 mg/dL (0.0-1.0)
--- NOTE | 2018-06-01 11:23 | NUR ---
REPORT: Given to JOSE Syed for continuation of care.
[2018-06-01] MEDS: IPRATROPIUM/ALBUTEROL SULFATE 3 ML AMPUL.NEB (DUONEB) INH SCH ×3 (11:27→19:00)
--- NOTE | 2018-06-01 11:30 | NUR ---
CONTINUATION OF CARE: Received patient, awake and oriented. Noted with shaking. Seen by Dr. Menchaca and rn case management to discuss transfer to contracted hospital. Patient is agreeable. Side rails are padded for alcohol induced seizure precautions. Call light within reach.
--- NOTE | 2018-06-01 11:59 | NUR ---
DC Planning: S/w [facility] re transfer pt. to network. The pt agreed with the transfer, dr. Menchaca made aware and gave to ok to transfer. >> Faxed pt's info to [facility] # [phone], may use any ambulance with auth # [id number], ALS status, requested tele bed, no isolation,
--- NOTE | 2018-06-01 13:47 | NUR ---
CONSULTATION called for Dr Menchaca for [facility] spoke with Radah consult of New Onset Seizure
--- NOTE | 2018-06-01 14:45 | NUR ---
Transfer of Care: Report given to JOSE Gonzalez.
--- NOTE | 2018-06-01 14:50 | NUR ---
Opening Note received report from Yahaira GARCIA, pt resting in bed, A&Ox4, respirations even and unlabored on room air, no seizure activity noted, no acute distress noted, pt complaint of pain 9/10 to back and neck, will follow up with MD for orders, side rails padded, pt educted on use of call light and asked to call for assistance, pt verbalized understanding, call light in reach, bed in low and locked position, bed alarm on, fall, aspiration, and seizure precautions in place.
--- NOTE | 2018-06-01 14:55 | NUR ---
Spoke with MD Spoke with Dr. Menchaca, informed him of pt complaint of pain 9/10 to back and neck and Mg level 1.3, orders for norco 10-325mg PO Q4h PRN for severe pain and mg rider 2g once, orders verified with telephone read back.
[2018-06-01] MEDS ORDERED: GABAPENTIN 300 MG CAPSULE PO SCH (15:00)
[2018-06-01] MEDS ORDERED: MAGNESIUM SULFATE 50 ML IV ONE (15:00)
--- NOTE | 2018-06-01 15:23 | NUR ---
Pain Management/Medication pt complaint of pain 9/10 to back and neck, pt educated on use and side effects of PRN norco and all medications, pt verbalized understanding, vital signs stable, tolerated medication administration well, no acute distress noted, fall, aspiration, and seizure precautions in place.
--- NOTE | 2018-06-01 15:23 | NUR ---
Discharge Planning HOME VISITOR HOME [employer] START assisting Manuel ULLOA. Patient accepted to [facility] [address] [place] [address] call report to [phone] Phoned patient's nurse, May RN. Request transfer at 18:30 due to just hung meds and dinner. [facility] arranged for 18:30 with tele monitor. [phone]. Spoke with Delonte. Auth # [id number] Packet placed in nurses' station.
--- NOTE | 2018-06-01 16:03 | NUR ---
Bedpan pt requesting to use bedpan, pt assisted to use bedpan, voided x1, pt cleaned and assisted to reposition, socks provided, call light in reach, fall, aspiration, and seizure precautions in place.
--- NOTE | 2018-06-01 16:37 | NUR ---
Called Report Called report to [facility] , gave report to Cheryle Aldrihc RN, informed of scheduled 1830 meat pickler via [facility].
--- NOTE | 2018-06-01 17:44 | NUR ---
Bedpan/Spoke with pt requesting to use bedpan, pt assisted to use bedpan, voided x1, cleaned, informed Dr. Menchaca that pt is having tremors of hands and that she is being transferred at 1830, orders for ativan 2mg IVP once now, verified with telephone read back.
[2018-06-01] MEDS ORDERED: LORazepam 2 MG/ML VIAL IVP ONE (18:00)
--- NOTE | 2018-06-01 18:00 | NUR ---
Medication/Notes pt educated on use and side effects of ativan, pt verbalized understanding, tolerated medication administration well, no acute distress noted, pt aware of 1830 cherry picker operator for transfer to [facility], transfer consent signed and in chart, fall, aspiration, and seizure precautions in place.
[2018-06-01] MEDS ORDERED: BUDESONIDE 0.5 MG/2 ML AMPUL.NEB INH SCH (19:00)
--- NOTE | 2018-06-01 19:10 | NUR ---
Closing Note pt resting in bed, A&Ox4, respirations even and unlabored on room air, no acute distress noted, no seizure activity noted, IV site clean, dry, and intact, side rails padded, pt educated on use of call light and asked to call for assistance, pt verbalized understanding, call light in reach, bed in low and locked position, bed alarm on, fall, aspiration, and seizure precautions in place, care endorsed to Raza GARCIA.
--- NOTE | 2018-06-01 19:56 | NUR ---
DISCHARGE: pt is pick up man by [facility], alert, awake, oriented x 4. no distress. no pain. stable. vital sign are with in normal limit. telebox and hosp. ID band remove. all belongings and pt own medication are given to ambulance crew. report and health info pocket is given to ambulance crew luke.
[2018-06-01] MEDS ORDERED: DOCUSATE SODIUM 100 MG CAPSULE PO SCH (21:00)
[2018-06-01] MEDS ORDERED: METOPROLOL TARTRATE 50 MG TABLET PO SCH (21:00)
[2018-06-01] MEDS ORDERED: POTASSIUM CHLORIDE 20 MEQ TAB.PRT.SR PO SCH (21:00)
[2018-06-02] MEDS ORDERED: ATORVASTATIN 20 MG TABLET PO SCH (09:00)
[2018-06-02] MEDS ORDERED: amLODIPine BESYLATE 5 MG TABLET PO SCH (09:00)
== END 2018-06-01 19:58 | disposition short-term general hospital (02) | DRG 53 ==
LOC: SED 01:13 → STU 02:37
PROVIDERS: ADMIT Internal Medicine; ATTEND Internal Medicine
DX: G40.89 Other seizures (principal); E78.5 Hyperlipidemia, unspecified; I10 Essential (primary) hypertension; F41.9 Anxiety disorder, unspecified; F10.20 Alcohol dependence, uncomplicated; F32.9 Major depressive disorder, single episode, unspecified; Z88.8 Allergy status to other drugs, medicaments and biological substances; Z79.899 Other long term (current) drug therapy
CPT/HCPCS: 36415; 70450-TC; 71045; 80053; 83735-TC; 84484; 85025; 85610-TC; 85730-TC; 93005; 94640; 96361; 96365; 96375; 99285; C9113; G0378; G0482; J1165; J1885; J2060; J2405; J3475; J3480; J7620; J7626

== ENCOUNTER 2018-06-14 00:30 | Emergency (ER) | payer MEDICAID ==
[~2018-06-14] VITALS: Ht 165.1 cm; Wt 59.4 kg
[2018-06-14 00:42] VITALS: BP_SYST 126
[2018-06-14] MEDS ORDERED: ONDANSETRON HCL 4 MG/2 ML VIAL IVP ONE (00:45)
[2018-06-14] MEDS ORDERED: LORazepam 2 MG/ML VIAL (FOR ER USE) IVP ONE (00:45)
[2018-06-14] MEDS ORDERED: NACL 0.9% 1,000 ML IV ONE (00:45)
[2018-06-14] MEDS ORDERED: KETOROLAC TROMETHAMINE 30 MG VIAL IVP ONE (00:45)
[2018-06-14 01:33] LABS: BASOPHILS # (AUTO) 0.1 K/uL (0.0-0.2); BASOPHILS % (AUTO) 1.8 % (0.0-2.0); EOSINOPHILS # (AUTO) 0.1 K/uL (0.0-0.4); HEMATOCRIT 42.1 % (36-48); HEMOGLOBIN 13.6 g/dL (12.0-16.0); LYMPHOCYTES # (AUTO) 2.9 K/uL (1.0-5.5); LYMPHOCYTES % (AUTO) 41.8 % (20.5-51.5); MEAN CORPUSCULAR HEMOGLOBIN 34 pg (27-31); MEAN CORPUSCULAR HGB CONC 32 % (32-36); MEAN CORPUSCULAR VOLUME 105 fL (79.0-98.0); MONOCYTES # (AUTO) 0.7 K/uL (0.0-1.0); MONOCYTES % (AUTO) 9.8 % (1.7-9.3); NEUTROPHILS % (AUTO) 44.6 % (40.0-70.0); PLATELET COUNT (AUTO) 468 K/uL (130-430); RED BLOOD CELL COUNT(AUTO) 4.01 MIL/uL (4.2-6.2); RED CELL DISTRIBUTION WIDTH 13.8 % (9.0-15.0); WHITE BLOOD COUNT (AUTO) 6.8 K/uL (4.8-10.8)
[2018-06-14 02:01] LABS: CALCIUM 8.6 mg/dL (8.4-11.0); CREATININE 0.61 mg/dL (0.55-1.30); POTASSIUM 3.5 mmol/L (3.5-5.1)
[2018-06-14 02:08] LABS: BILIRUBIN,URINE NEGATIVE (NEGATIVE); BLOOD, URINE NEGATIVE (NEGATIVE); CLARITY/URINE CLEAR (CLEAR); COLOR,URINE YELLOW (YELLOW); GLUCOSE,URINE NEGATIVE (NEGATIVE); KETONES,URINE NEGATIVE (NEGATIVE); LEUKOCYTE ESTERASE ,URINE NEGATIVE (NEGATIVE); NITRITE, URINE NEGATIVE (NEGATIVE); PROTEIN URINE NEGATIVE (NEGATIVE); UROBILINOGEN,URINE 0.2 (0.2-1.0)
[2018-06-14 02:16] LABS: ALBUMIN 3.6 g/dL (3.4-4.8); TOTAL BILIRUBIN 0.2 mg/dL (0.0-1.0)
[2018-06-14 02:23] LABS: BARBITURATE, URINE NEGATIVE (NEG <=200); BENZODIAZEPINE, URINE POSITIVE (NEG <=150); CANNABINOID, URINE NEGATIVE (NEG <=50); COCAINE, URINE NEGATIVE (NEG <=150); METHAMPHETAMINES SCREEN,URINE NEGATIVE (NEG <=500); OPIATE, URINE NEGATIVE (NEG <=100); PHENCYCLIDINE SCREEN,URINE NEGATIVE (NEG <=25); UR TRICYCLIC ANTIDEPRESSANTS NEGATIVE (NEG <=300); URINE AMPHETAMINE NEGATIVE (NEG <=500); URINE METHADONE NEGATIVE (NEG <=200); URINE OXYCODONE SCREEN NEGATIVE (NEG <=100); URINE PROPOXYPHENE SCREEN NEGATIVE (NEG <=300)
[2018-06-14 05:16] VITALS: BP_SYST 105
== END 2018-06-14 05:16 | disposition home or self-care (01) ==
LOC: SED 00:30
DX: K14.6 Glossodynia (principal); F10.229 Alcohol dependence with intoxication, unspecified; J44.9 Chronic obstructive pulmonary disease, unspecified; E78.00 Pure hypercholesterolemia, unspecified; F41.9 Anxiety disorder, unspecified; F32.9 Major depressive disorder, single episode, unspecified; Z88.8 Allergy status to other drugs, medicaments and biological substances; Z79.899 Other long term (current) drug therapy
CPT/HCPCS: 36415; 80053; 80307; 81003; 83690; 83735; 85025; 96374; 96375; 99283; G0482; J1885; J2060; J2405; J7030

== ENCOUNTER 2018-06-22 08:03 | Inpatient (IN) | payer MEDICAID ==
[~2018-06-22] VITALS: Ht 165.1 cm; Wt 60.3 kg
[2018-06-22 08:05] VITALS: BP_SYST 131
[2018-06-22] MEDS ORDERED: NACL 0.9% 1,000 ML IV ONE (08:12)
[2018-06-22] MEDS ORDERED: KETOROLAC TROMETHAMINE 30 MG VIAL IVP ONE (08:15)
[2018-06-22] MEDS ORDERED: FOLIC ACID 1 MG, THIAMINE HCL 100 MG, MAGNESIUM SULFATE 1 GM, MVI 10 ML in NACL 0.9% 1,... IV ONE (08:15)
[2018-06-22] MEDS ORDERED: LORazepam 2 MG/ML VIAL (FOR ER USE) IVP ONE (08:30)
[2018-06-22 08:47] LABS: HEMOGLOBIN 16.9 g/dL (12.0-16.0)
[2018-06-22 08:52] LABS: CALCIUM 9.5 mg/dL (8.4-11.0); CREATININE 0.7 mg/dL (0.55-1.30); POTASSIUM 4.1 mmol/L (3.5-5.1)
[2018-06-22 08:56] LABS: ALBUMIN 4.5 g/dL (3.4-4.8); INR 0.9 (0.8-1.2); PROTHROMBIN TIME 8.9 SECS (9.5-12.5); TOTAL BILIRUBIN 0.5 mg/dL (0.0-1.0)
[2018-06-22 08:58] LABS: BASOPHILS % (AUTO) 0.4 % (0.0-2.0); EOSINOPHILS % (AUTO) 0.7 % (0.0-4.0); LYMPHOCYTES # (AUTO) 3.2 K/uL (1.0-5.5); LYMPHOCYTES % (AUTO) 67.3 % (20.5-51.5); MEAN CORPUSCULAR HEMOGLOBIN 35 pg (27-31); MEAN CORPUSCULAR HGB CONC 35 % (32-36); MEAN CORPUSCULAR VOLUME 101 fL (79.0-98.0); MONOCYTES # (AUTO) 0.2 K/uL (0.0-1.0); MONOCYTES % (AUTO) 5.3 % (1.7-9.3); NEUTROPHILS # (AUTO) 1.2 K/uL (1.8-7.7); NEUTROPHILS % (AUTO) 26.3 % (40.0-70.0); PLATELET COUNT (AUTO) 167 K/uL (130-430); RED BLOOD CELL COUNT(AUTO) 4.86 MIL/uL (4.2-6.2); RED CELL DISTRIBUTION WIDTH 14.3 % (9.0-15.0); WHITE BLOOD COUNT (AUTO) 4.6 K/uL (4.8-10.8)
[2018-06-22 09:38] LABS: CREATINE KINASE MB 5.2 ng/mL (0-3.6)
[2018-06-22] MEDS ORDERED: PARO40TA PO (14:26)
[2018-06-22 15:04] VITALS: BP_SYST 135
[2018-06-22] MEDS ORDERED: chlordiazePOXIDE HCL 25 MG CAPSULE PO ONE (15:15)
[2018-06-22] MEDS ORDERED: GABAPENTIN 300 MG CAPSULE PO PRN (15:15)
[2018-06-22] MEDS ORDERED: PHENYTOIN 100 MG CAPSULE PO ONE (16:00)
[2018-06-22] MEDS ORDERED: LIDOCAINE VISCOUS 2%, 15 ML UDC MM PRN (16:00)
[2018-06-22 17:00] VITALS: BP_SYST 133
[2018-06-22] MEDS ORDERED: IPRATROPIUM/ALBUTEROL SULFATE 3 ML AMPUL.NEB (DUONEB) ONE (17:12)
[2018-06-22] MEDS: LORazepam 2 MG/ML VIAL IVP PRN ×2 (18:21→22:22)
[2018-06-22] MEDS: IPRATROPIUM/ALBUTEROL SULFATE 3 ML AMPUL.NEB (DUONEB) INH SCH ×2 (19:42→23:08)
[2018-06-22 20:00] VITALS: BP_SYST 127
[2018-06-22] MEDS: POTASSIUM CHLORIDE 20 MEQ TAB.PRT.SR PO SCH (20:05)
[2018-06-22] MEDS: DOCUSATE SODIUM 100 MG CAPSULE PO SCH (20:05)
[2018-06-22] MEDS: METOPROLOL TARTRATE 50 MG TABLET PO SCH (20:06)
[2018-06-22] MEDS: chlordiazePOXIDE HCL 25 MG CAPSULE PO SCH (20:06)
[2018-06-22] MEDS ORDERED: ATORVASTATIN 20 MG TABLET PO SCH (21:00)
[2018-06-22] MEDS ORDERED: PHENYTOIN 100 MG CAPSULE PO SCH (21:00)
[2018-06-23] VITALS: BP_SYST 123
[2018-06-23] MEDS: LORazepam 2 MG/ML VIAL IVP PRN ×3 (02:16→11:55)
[2018-06-23] MEDS: IPRATROPIUM/ALBUTEROL SULFATE 3 ML AMPUL.NEB (DUONEB) INH SCH ×3 (03:00→11:21)
[2018-06-23 06:50] LABS: BASOPHILS % (AUTO) 0.5 % (0.0-2.0); EOSINOPHILS % (AUTO) 0.3 % (0.0-4.0); HEMATOCRIT 44.2 % (36-48); HEMOGLOBIN 14.8 g/dL (12.0-16.0); LYMPHOCYTES # (AUTO) 1.5 K/uL (1.0-5.5); LYMPHOCYTES % (AUTO) 37.2 % (20.5-51.5); MEAN CORPUSCULAR HEMOGLOBIN 35 pg (27-31); MEAN CORPUSCULAR HGB CONC 33 % (32-36); MEAN CORPUSCULAR VOLUME 103 fL (79.0-98.0); MONOCYTES # (AUTO) 0.2 K/uL (0.0-1.0); MONOCYTES % (AUTO) 5.6 % (1.7-9.3); NEUTROPHILS # (AUTO) 2.3 K/uL (1.8-7.7); NEUTROPHILS % (AUTO) 56.4 % (40.0-70.0); PLATELET COUNT (AUTO) 123 K/uL (130-430); RED BLOOD CELL COUNT(AUTO) 4.28 MIL/uL (4.2-6.2); RED CELL DISTRIBUTION WIDTH 13.6 % (9.0-15.0)
[2018-06-23 07:00] LABS: ALBUMIN 3.8 g/dL (3.4-4.8); CALCIUM 9.2 mg/dL (8.4-11.0); CREATININE 0.58 mg/dL (0.55-1.30); POTASSIUM 3.8 mmol/L (3.5-5.1)
[2018-06-23 08:21] VITALS: BP_SYST 120
[2018-06-23] MEDS: POTASSIUM CHLORIDE 20 MEQ TAB.PRT.SR PO SCH (08:43)
[2018-06-23] MEDS: DOCUSATE SODIUM 100 MG CAPSULE PO SCH (08:44)
[2018-06-23] MEDS: METOPROLOL TARTRATE 50 MG TABLET PO SCH (08:44)
[2018-06-23] MEDS: chlordiazePOXIDE HCL 25 MG CAPSULE PO SCH (08:45)
[2018-06-23] MEDS ORDERED: FOLIC ACID 1 MG TABLET PO SCH (09:00)
[2018-06-23] MEDS ORDERED: THIAMINE HCL 100 MG TABLET PO SCH (09:00)
[2018-06-23] MEDS ORDERED: amLODIPine BESYLATE 5 MG TABLET PO SCH (09:00)
[2018-06-23] MEDS ORDERED: PAROXETINE HCL 10 MG TABLET PO SCH (09:00)
[2018-06-23 11:10] VITALS: BP_SYST 141
[2018-06-23] MEDS ORDERED: chlordiazePOXIDE HCL 25 MG CAPSULE PO SCH (13:00)
== END 2018-06-23 13:18 | disposition left against medical advice (07) | DRG 770 ==
LOC: SED 08:03 → STU 14:05
PROVIDERS: ADMIT Internal Medicine; ATTEND Internal Medicine
DX: F10.221 Alcohol dependence with intoxication delirium (principal); E87.0 Hyperosmolality and hypernatremia; K70.10 Alcoholic hepatitis without ascites; E78.00 Pure hypercholesterolemia, unspecified; Z53.21 Procedure and treatment not carried out due to patient leaving prior to being seen by health care provider; Y90.9 Presence of alcohol in blood, level not specified; G40.909 Epilepsy, unspecified, not intractable, without status epilepticus; J44.9 Chronic obstructive pulmonary disease, unspecified; F41.9 Anxiety disorder, unspecified; F32.9 Major depressive disorder, single episode, unspecified; Z79.899 Other long term (current) drug therapy; Z88.8 Allergy status to other drugs, medicaments and biological substances; Z82.49 Family history of ischemic heart disease and other diseases of the circulatory system
CPT/HCPCS: 36415; 71045; 80053; 82150-TC; 82550-TC; 82553-TC; 83605; 83690-TC; 84484; 85025; 85610-TC; 85730-TC; 87040-TC; 93005; 94640; 94760; 95816; 96365; 96375; 99285; G0378; G0481; G0482; J1885; J2001; J2060; J3411; J3475; J3490; J7030; J7620

== ENCOUNTER 2018-07-14 21:14 | Emergency (ER) | payer MEDICAID ==
[~2018-07-14] VITALS: Ht 162.6 cm; Wt 60.3 kg
[~2018-07-14 21:14] MED LIST changes: +PARO40TA PO
[2018-07-14 21:25] VITALS: BP_SYST 130
[2018-07-14] MEDS ORDERED: PHENYTOIN SODIUM INJ 1,000 MG in NS 100 ML IV ONE (23:00)
[2018-07-14] MEDS ORDERED: NACL 0.9% 1,000 ML IV ONE (23:00)
[2018-07-14] MEDS ORDERED: PHENYTOIN SODIUM 250 MG/5 ML INJ. VIAL IV ONE (23:13)
[2018-07-14 23:42] LABS: ANION GAP 10 (5-15); CALCIUM 9.7 mg/dL (8.4-11.0); CHLORIDE 101 mmol/L (98-107); CREATININE 0.52 mg/dL (0.55-1.30); GLUCOSE 95 mg/dL (70-99); SODIUM SERUM 139 mmol/L (136-145); UREA NITROGEN, BLOOD 11 mg/dL (8-21)
[2018-07-14 23:43] LABS: BENZODIAZEPINE, URINE POSITIVE (NEG <=150)
[2018-07-14 23:44] LABS: BARBITURATE, URINE POSITIVE (NEG <=200); CANNABINOID, URINE NEGATIVE (NEG <=50); COCAINE, URINE NEGATIVE (NEG <=150); METHAMPHETAMINES SCREEN,URINE NEGATIVE (NEG <=500); OPIATE, URINE NEGATIVE (NEG <=100); PHENCYCLIDINE SCREEN,URINE NEGATIVE (NEG <=25); UR TRICYCLIC ANTIDEPRESSANTS NEGATIVE (NEG <=300); URINE AMPHETAMINE NEGATIVE (NEG <=500); URINE METHADONE NEGATIVE (NEG <=200); URINE OXYCODONE SCREEN POSITIVE (NEG <=100); URINE PROPOXYPHENE SCREEN NEGATIVE (NEG <=300)
[2018-07-14 23:46] LABS: GFR AFRICAN AMERICAN 158 mL/min (>90)
[2018-07-14 23:48] LABS: ALANINE AMINOTRANSFERASE 55 U/L (12-78); ASPARTATE AMINOTRANSFERASE 41 U/L (10-37); BASOPHILS # (AUTO) 0.1 K/uL (0.0-0.2); BASOPHILS % (AUTO) 1.1 % (0.0-2.0); EOSINOPHILS # (AUTO) 0.1 K/uL (0.0-0.4); EOSINOPHILS % (AUTO) 1.4 % (0.0-4.0); HEMATOCRIT 42.2 % (36-48); HEMOGLOBIN 14.4 g/dL (12.0-16.0); LYMPHOCYTES # (AUTO) 1.6 K/uL (1.0-5.5); LYMPHOCYTES % (AUTO) 33.3 % (20.5-51.5); MEAN CORPUSCULAR HEMOGLOBIN 36 pg (27-31); MEAN CORPUSCULAR HGB CONC 34 % (32-36); MEAN CORPUSCULAR VOLUME 104 fL (79.0-98.0); MONOCYTES # (AUTO) 0.5 K/uL (0.0-1.0); MONOCYTES % (AUTO) 11.4 % (1.7-9.3); NEUTROPHILS # (AUTO) 2.4 K/uL (1.8-7.7); NEUTROPHILS % (AUTO) 52.8 % (40.0-70.0); PLATELET COUNT (AUTO) 230 K/uL (130-430); RED BLOOD CELL COUNT(AUTO) 4.05 MIL/uL (4.2-6.2); TOTAL BILIRUBIN 0.3 mg/dL (0.0-1.0); WHITE BLOOD COUNT (AUTO) 4.7 K/uL (4.8-10.8)
[2018-07-14 23:50] LABS: ALCOHOL, BLOOD < 3 mg/dL (<10)
[2018-07-15 00:10] LABS: CKMB RELATIVE INDEX 1.9 (0.0-2.9); CREATINE KINASE MB 7.2 ng/mL (0-3.6)
[2018-07-15 01:00] VITALS: BP_SYST 140
== END 2018-07-15 01:00 | disposition home or self-care (01) ==
LOC: SED 21:14
DX: R56.9 Unspecified convulsions (principal); F10.21 Alcohol dependence, in remission; E78.00 Pure hypercholesterolemia, unspecified; F41.9 Anxiety disorder, unspecified; F32.9 Major depressive disorder, single episode, unspecified; Z88.8 Allergy status to other drugs, medicaments and biological substances; Z79.899 Other long term (current) drug therapy
CPT/HCPCS: 36415; 71045; 80053; 80307; 82550; 82553; 85025; 93005; 96365; 99284; G0482; J1165; J7030

== ENCOUNTER 2018-11-16 05:47 | Emergency (ER) | payer MEDICAID ==
[~2018-11-16] VITALS: Ht 162.6 cm; Wt 60.3 kg
[2018-11-16 05:47] VITALS: BP_SYST 109
--- NOTE | 2018-11-16 05:50 | NUR ---
Patient to ER bed 07 to gown for evaluation. Side rails up.
--- NOTE | 2018-11-16 05:55 | NUR ---
Patient brought by ambulance BLS for laceration to back of head. Patient states she drank alcohol tonight, and thinks she had a "mini seizure" causing her to fall back. Patient states no KO but does not recall the event. Patient states no N/V. No other symptoms or complaints.
--- NOTE | 2018-11-16 06:00 | NUR ---
ER MD Masters at bedside for medical evaluation.
[2018-11-16 06:42] VITALS: BP_SYST 115
--- NOTE | 2018-11-16 06:42 | NUR ---
Patient given written and verbal discharge instructions and verbalizes understanding. ER MD discussed with patient the results and treatment provided. Patient in stable condition. ID arm band removed. Rx of Motrin given. Patient educated on pain management and to follow up with PMD. Pain Scale 2/10 tolerable to patient. Opportunity for questions provided and answered. Medication side effect fact sheet provided.
== END 2018-11-16 06:42 | disposition home or self-care (01) ==
LOC: SED 05:47
DX: S01.01XA Laceration without foreign body of scalp, initial encounter (principal); E78.00 Pure hypercholesterolemia, unspecified; F41.9 Anxiety disorder, unspecified; F32.9 Major depressive disorder, single episode, unspecified; Z79.899 Other long term (current) drug therapy; W18.09XA Striking against other object with subsequent fall, initial encounter; Y93.89 Activity, other specified; Y92.89 Other specified places as the place of occurrence of the external cause; Y99.8 Other external cause status
CPT/HCPCS: 99283

== ENCOUNTER 2018-11-19 15:23 | Emergency (ER) | payer MEDICAID ==
[~2018-11-19] VITALS: Ht 157.5 cm; Wt 49.9 kg
[2018-11-19 15:23] VITALS: BP_SYST 112
[2018-11-19] MEDS ORDERED: NACL 0.9% 1,000 ML IV ONE (15:45)
[2018-11-19 16:06] LABS: HEMATOCRIT 39.4 % (36-48); HEMOGLOBIN 13.4 g/dL (12.0-16.0); MEAN CORPUSCULAR HEMOGLOBIN 37 pg (27-31); MEAN CORPUSCULAR HGB CONC 34 % (32-36); MEAN CORPUSCULAR VOLUME 108 fL (79.0-98.0); PLATELET COUNT (AUTO) 119 K/uL (130-430); RED BLOOD CELL COUNT(AUTO) 3.65 MIL/uL (4.2-6.2); RED CELL DISTRIBUTION WIDTH 13.9 % (9.0-15.0); WHITE BLOOD COUNT (AUTO) 3.7 K/uL (4.8-10.8)
[2018-11-19 16:07] LABS: ANION GAP 25 (5-15); CALCIUM 8.5 mg/dL (8.4-11.0); CHLORIDE 98 mmol/L (98-107); CREATININE 0.63 mg/dL (0.55-1.30); GLUCOSE 57 mg/dL (70-99); SODIUM SERUM 143 mmol/L (136-145); UREA NITROGEN, BLOOD 12 mg/dL (8-21)
[2018-11-19 16:08] LABS: GFR AFRICAN AMERICAN 127 mL/min (>90)
[2018-11-19 16:14] LABS: ALANINE AMINOTRANSFERASE 155 U/L (12-78); ALBUMIN 3.7 g/dL (3.4-4.8); ASPARTATE AMINOTRANSFERASE 450 U/L (10-37); TOTAL BILIRUBIN 1.7 mg/dL (0.0-1.0)
[2018-11-19 16:15] LABS: ACETAMINOPHEN < 1 ug/mL (1-30)
[2018-11-19 16:16] LABS: ALCOHOL, BLOOD 428 mg/dL (<10); ATYPICAL LYMPHOCYTES % 6 % (0-0); BAND % (MANUAL) 0 % (0-6); BASOPHILS % (MANUAL) 0 % (0-2); EOSINOPHILS % (MANUAL) 2 % (0-7); LYMPHOCYTES % (MANUAL) 57 % (20-46); MONOCYTES % (MANUAL) 3 % (0-11)
[2018-11-19 16:21] LABS: CANNABINOID, URINE POSITIVE (NEG <=50)
[2018-11-19 16:22] LABS: BARBITURATE, URINE NEGATIVE (NEG <=200); BENZODIAZEPINE, URINE NEGATIVE (NEG <=150); COCAINE, URINE NEGATIVE (NEG <=150); METHAMPHETAMINES SCREEN,URINE NEGATIVE (NEG <=500); OPIATE, URINE NEGATIVE (NEG <=100); PHENCYCLIDINE SCREEN,URINE NEGATIVE (NEG <=25); UR TRICYCLIC ANTIDEPRESSANTS NEGATIVE (NEG <=300); URINE AMPHETAMINE NEGATIVE (NEG <=500); URINE METHADONE NEGATIVE (NEG <=200); URINE OXYCODONE SCREEN NEGATIVE (NEG <=100); URINE PROPOXYPHENE SCREEN NEGATIVE (NEG <=300)
[2018-11-19] MEDS ORDERED: POTASSIUM CHLORIDE 20 MEQ TAB.PRT.SR PO ONE (16:30)
[2018-11-19] MEDS ORDERED: FOLIC ACID 1 MG, THIAMINE HCL 100 MG, MAGNESIUM SULFATE 1 GM, MVI 10 ML in NACL 0.9% 1,... IV ONE (17:30)
[2018-11-19] MEDS ORDERED: FOLIC ACID 5 MG/ML VIAL IV ONE (18:38)
[2018-11-19] MEDS ORDERED: THIAMINE HCL 100 MG/ML VIAL ONE (18:38)
[2018-11-19] MEDS ORDERED: MAGNESIUM SULFATE 1 GM/2 ML VIAL ONE (18:38)
[2018-11-19] MEDS ORDERED: MVI 10 ML VIAL IV ONE (18:38)
[2018-11-19 19:20] VITALS: BP_SYST 121
== END 2018-11-19 19:20 | disposition home or self-care (01) ==
LOC: SED 15:23
DX: F10.129 Alcohol abuse with intoxication, unspecified (principal); R03.0 Elevated blood-pressure reading, without diagnosis of hypertension; E78.00 Pure hypercholesterolemia, unspecified; F41.9 Anxiety disorder, unspecified; F32.9 Major depressive disorder, single episode, unspecified; Z88.8 Allergy status to other drugs, medicaments and biological substances; Z79.899 Other long term (current) drug therapy; Y90.8 Blood alcohol level of 240 mg/100 ml or more
CPT/HCPCS: 36415; 70450; 80053; 80307; 85007; 85027; 93005; 96361; 96365; 99284; G0480; G0481; G0482; J3411; J3475; J3490; J7030

== ENCOUNTER 2018-11-23 00:30 | Emergency (ER) | payer MEDICAID ==
[~2018-11-23] VITALS: Ht 162.6 cm; Wt 59.0 kg
[2018-11-23 00:39] VITALS: BP_SYST 115
[2018-11-23] MEDS ORDERED: NACL 0.9% 1,000 ML IV ONE (01:01)
[2018-11-23] MEDS ORDERED: LORazepam 2 MG/ML VIAL (FOR ER USE) IVP ONE (01:15)
[2018-11-23] MEDS ORDERED: chlordiazePOXIDE HCL 25 MG CAPSULE PO ONE (01:15)
[2018-11-23 01:22] LABS: BASOPHILS # (AUTO) 0.1 K/uL (0.0-0.2); BASOPHILS % (AUTO) 1.3 % (0.0-2.0); EOSINOPHILS % (AUTO) 0.5 % (0.0-4.0); HEMOGLOBIN 12.5 g/dL (12.0-16.0); LYMPHOCYTES # (AUTO) 1.4 K/uL (1.0-5.5); LYMPHOCYTES % (AUTO) 35.7 % (20.5-51.5); MEAN CORPUSCULAR HEMOGLOBIN 37 pg (27-31); MEAN CORPUSCULAR HGB CONC 35 % (32-36); MEAN CORPUSCULAR VOLUME 107 fL (79.0-98.0); MONOCYTES # (AUTO) 0.3 K/uL (0.0-1.0); MONOCYTES % (AUTO) 7.5 % (1.7-9.3); NEUTROPHILS # (AUTO) 2.1 K/uL (1.8-7.7); PLATELET COUNT (AUTO) 124 K/uL (130-430); RED BLOOD CELL COUNT(AUTO) 3.37 MIL/uL (4.2-6.2); RED CELL DISTRIBUTION WIDTH 13.5 % (9.0-15.0); WHITE BLOOD COUNT (AUTO) 3.9 K/uL (4.8-10.8)
[2018-11-23 02:03] LABS: CALCIUM 9.2 mg/dL (8.4-11.0); CREATININE 0.57 mg/dL (0.55-1.30)
[2018-11-23 02:07] LABS: ALBUMIN 3.9 g/dL (3.4-4.8); PHENYTOIN (DILANTIN) 4.6 ug/mL (10.0-20.0); TOTAL BILIRUBIN 1.3 mg/dL (0.0-1.0)
[2018-11-23 02:09] LABS: POTASSIUM 2.7 mmol/L (3.5-5.1)
[2018-11-23] MEDS ORDERED: KCL 20 mEq in 100 mL (PREMIX) 100 ML IV ONE (02:15)
[2018-11-23] MEDS ORDERED: POTASSIUM CHLORIDE 20 MEQ TAB.PRT.SR PO ONE (02:15)
[2018-11-23] MEDS ORDERED: PHENYTOIN 100 MG CAPSULE PO ONE (02:30)
[2018-11-23] MEDS ORDERED: POTASSIUM CHLORIDE 10 MEQ TAB.PRT.SR PO ONE (02:45)
[2018-11-23 02:58] LABS: BILIRUBIN,URINE NEGATIVE (NEGATIVE); BLOOD, URINE 1+ (NEGATIVE); COLOR,URINE YELLOW (YELLOW); GLUCOSE,URINE NEGATIVE (NEGATIVE); KETONES,URINE 1+ (NEGATIVE); LEUKOCYTE ESTERASE ,URINE 1+ (NEGATIVE); NITRITE, URINE POSITIVE (NEGATIVE); PROTEIN URINE 1+ (NEGATIVE)
[2018-11-23 03:00] LABS: CLARITY/URINE HAZY (CLEAR)
[2018-11-23 03:09] LABS: BARBITURATE, URINE POSITIVE (NEG <=200); BENZODIAZEPINE, URINE POSITIVE (NEG <=150); CANNABINOID, URINE POSITIVE (NEG <=50); COCAINE, URINE NEGATIVE (NEG <=150); METHAMPHETAMINES SCREEN,URINE NEGATIVE (NEG <=500); OPIATE, URINE POSITIVE (NEG <=100); PHENCYCLIDINE SCREEN,URINE NEGATIVE (NEG <=25); UR TRICYCLIC ANTIDEPRESSANTS NEGATIVE (NEG <=300); URINE AMPHETAMINE NEGATIVE (NEG <=500); URINE METHADONE NEGATIVE (NEG <=200); URINE OXYCODONE SCREEN NEGATIVE (NEG <=100); URINE PROPOXYPHENE SCREEN NEGATIVE (NEG <=300)
[2018-11-23 03:15] LABS: BACTERIA,URINE MANY /HPF (None Seen); MUCUS,URINE 1+ /LPF (None Seen)
[2018-11-23 03:18] VITALS: BP_SYST 121
== END 2018-11-23 03:18 | disposition home or self-care (01) ==
LOC: SED 00:30
DX: R56.9 Unspecified convulsions (principal); E87.6 Hypokalemia; F10.239 Alcohol dependence with withdrawal, unspecified; E78.00 Pure hypercholesterolemia, unspecified; F41.9 Anxiety disorder, unspecified; F32.9 Major depressive disorder, single episode, unspecified; Z88.8 Allergy status to other drugs, medicaments and biological substances; Z79.899 Other long term (current) drug therapy
CPT/HCPCS: 36415; 80053; 80185; 80307; 81000; 85025; 85610; 85730; 87086; 87186; 93005; 96365; 96375; 99284; G0482; J2060; J3480; J7030

== ENCOUNTER 2019-01-05 16:01 | Emergency (ER) | payer MEDICAID ==
[~2019-01-05] VITALS: Ht 165.1 cm; Wt 81.6 kg
[~2019-01-05 16:01] MED LIST changes: -ACET325T53 PO; -AMLO5TAB4 PO; -BUDE0.5A INH; -DOCU-144 PO; -GABA-531 PO; -IPRA3AMP9 INH; -LIP20 PO; -NALT50TA PO; -POTA20TA83 PO
--- NOTE | 2019-01-05 16:03 | NUR ---
SANDRA Cleveland at bedside examining patient.
[2019-01-05 16:05] VITALS: BP_SYST 106
--- NOTE | 2019-01-05 16:10 | NUR ---
Patient triaged and placed in hallway. VSS and patient appears in no acute distress at this time. Accompanied by paramedics, awaiting available bed, and MD notified of need for MSE.
[2019-01-05] MEDS ORDERED: THIAMINE HCL 100 MG/ML VIAL IM ONE ×2 (16:15→18:15)
[2019-01-05] MEDS ORDERED: NACL 0.9% 2,000 ML IV ONE (16:15)
[2019-01-05] MEDS ORDERED: ONDANSETRON HCL 4 MG/2 ML VIAL IVP ONE (16:15)
[2019-01-05] MEDS ORDERED: FOLIC ACID 5 MG/ML VIAL IV ONE ×3 (16:15→18:24)
--- NOTE | 2019-01-05 16:17 | NUR ---
Placed in room 07. Placed on customer insight analyst, blood pressure machine and pulse oximeter. To gown for exam. Side rails up.
--- NOTE | 2019-01-05 16:35 | NUR ---
PT incontinent of BM. Large soft stool cleansed, pants and underwear thrown in the trash. Erythema inbetween buttocks, blanchable. Open small blister like spot on right lateral buttock. Clean chux placed. Pt tolerated well.
[2019-01-05 17:07] LABS: BASOPHILS % (AUTO) 0.7 % (0.0-2.0); EOSINOPHILS % (AUTO) 0.2 % (0.0-4.0); HEMATOCRIT 34.9 % (36-48); HEMOGLOBIN 12.2 g/dL (12.0-16.0); LYMPHOCYTES # (AUTO) 0.9 K/uL (1.0-5.5); LYMPHOCYTES % (AUTO) 28.8 % (20.5-51.5); MEAN CORPUSCULAR HEMOGLOBIN 38 pg (27-31); MEAN CORPUSCULAR HGB CONC 35 % (32-36); MEAN CORPUSCULAR VOLUME 108 fL (79.0-98.0); MONOCYTES # (AUTO) 0.4 K/uL (0.0-1.0); MONOCYTES % (AUTO) 11.6 % (1.7-9.3); NEUTROPHILS # (AUTO) 1.8 K/uL (1.8-7.7); NEUTROPHILS % (AUTO) 58.7 % (40.0-70.0); PLATELET COUNT (AUTO) 121 K/uL (130-430); RED BLOOD CELL COUNT(AUTO) 3.25 MIL/uL (4.2-6.2); RED CELL DISTRIBUTION WIDTH 14.4 % (9.0-15.0); WHITE BLOOD COUNT (AUTO) 3.1 K/uL (4.8-10.8)
[2019-01-05 17:32] LABS: CALCIUM 9.2 mg/dL (8.4-11.0); CREATININE 0.53 mg/dL (0.55-1.30)
[2019-01-05 17:37] LABS: ALBUMIN 3.2 g/dL (3.4-4.8); TOTAL BILIRUBIN 3.4 mg/dL (0.0-1.0)
[2019-01-05 17:59] LABS: POTASSIUM 2.7 mmol/L (3.5-5.1)
[2019-01-05] MEDS ORDERED: KCL 40 mEq in 100 mL (PREMIX) 100 ML IV ONE (18:00)
[2019-01-05] MEDS ORDERED: THIAMINE HCL 100 MG/ML VIAL ONE (18:24)
[2019-01-05] MEDS ORDERED: KCL 20 mEq in 100 mL (PREMIX) 200 ML IV ONE (18:25)
--- NOTE | 2019-01-05 18:26 | NUR ---
Medicated per MD orders. IVF infusing with no s/s of infiltration at this time. Will cont to monitor
--- NOTE | 2019-01-05 18:36 | NUR ---
Pt ETOH, unable to confirm home medications at this time, sleepy but arrousable.
--- NOTE | 2019-01-05 18:50 | NUR ---
# 14 FR In and Out catheter with use of sterile technique. Immediate return of 600 ml dark yellow urine noted. Urine sample collected and sent to lab. Pt tolerated procedure well. Patient unable to toilet self d/t ETOH
[2019-01-05 19:07] LABS: BILIRUBIN,URINE 1+ (NEGATIVE); CLARITY/URINE SL HAZY (CLEAR); COLOR,URINE YELLOW (YELLOW); GLUCOSE,URINE NEGATIVE (NEGATIVE); KETONES,URINE 2+ (NEGATIVE); LEUKOCYTE ESTERASE ,URINE TRACE (NEGATIVE); NITRITE, URINE POSITIVE (NEGATIVE); PROTEIN URINE TRACE (NEGATIVE)
--- NOTE | 2019-01-05 19:18 | NUR ---
Pt states no change in home medication since last visit. Med rec updated.
--- NOTE | 2019-01-05 19:19 | NUR ---
Care endoresed to JOSE Bauman per SBAR
[2019-01-05 19:31] LABS: BARBITURATE, URINE NEGATIVE (NEG <=200); BENZODIAZEPINE, URINE NEGATIVE (NEG <=150); CANNABINOID, URINE NEGATIVE (NEG <=50); COCAINE, URINE NEGATIVE (NEG <=150); METHAMPHETAMINES SCREEN,URINE NEGATIVE (NEG <=500); OPIATE, URINE NEGATIVE (NEG <=100); PHENCYCLIDINE SCREEN,URINE NEGATIVE (NEG <=25); UR TRICYCLIC ANTIDEPRESSANTS NEGATIVE (NEG <=300); URINE AMPHETAMINE NEGATIVE (NEG <=500); URINE METHADONE NEGATIVE (NEG <=200); URINE OXYCODONE SCREEN NEGATIVE (NEG <=100); URINE PROPOXYPHENE SCREEN NEGATIVE (NEG <=300)
[2019-01-05 19:41] LABS: BLOOD, URINE TRACE (NEGATIVE)
[2019-01-05 19:53] LABS: BACTERIA,URINE MANY /HPF (None Seen); RBC,URINE 0-3 /HPF (0-3)
[2019-01-05 19:54] LABS: MUCUS,URINE None Seen /LPF (None Seen)
--- NOTE | 2019-01-05 20:40 | NUR ---
Pt resting comfortably in hospital bed, no acute distress. Will continue to monitor.
--- NOTE | 2019-01-05 21:10 | NUR ---
Spoke with Daryl, pt's significant other, and updated him on patient. Informed Daryl, pt might be transferred and will give him a call to update.
--- NOTE | 2019-01-05 22:41 | NUR ---
Patient to be transferred to [facility]. Is being transferred due to higher level of care. Receiving facility has accepting physician and available space. ER physician has signed transfer form. Patient or responsible green party has agreed to transfer and signed form. Patient belongings inventoried and will be sent with patient. Copy of nursing notes, lab reports, EKG, Physicians Orders and X-rays to be sent with patient. Report called to at receiving facility. Receiving physician is Dr. Poonam Skinner. [facility] has been called for transfer.
--- NOTE | 2019-01-05 22:41 | NUR ---
Transfer to [facility], Room 407. IV present no signs or symptoms of infiltration.
[2019-01-05 22:45] VITALS: BP_SYST 121
--- NOTE | 2019-01-07 20:50 | NUR ---
Spoke to JOSE Thomas from [facility] and informed her pt results from lab.
== END 2019-01-05 22:41 | disposition short-term general hospital (02) ==
LOC: SED 16:01
DX: K85.20 Alcohol induced acute pancreatitis without necrosis or infection (principal); E87.6 Hypokalemia; F10.129 Alcohol abuse with intoxication, unspecified; E78.00 Pure hypercholesterolemia, unspecified; F41.9 Anxiety disorder, unspecified; F32.9 Major depressive disorder, single episode, unspecified; Z79.899 Other long term (current) drug therapy; Z88.8 Allergy status to other drugs, medicaments and biological substances
CPT/HCPCS: 36415; 80053; 80307; 81000; 83690; 85025; 87086; 87186; 96365; 96366; 96372; 96375; 99285; G0482; J2405; J3411; J3480; J3490; J7030

== ENCOUNTER 2019-04-25 14:29 | Emergency (ER) | payer MEDICAID ==
[~2019-04-25] VITALS: Ht 165.1 cm; Wt 54.4 kg
[2019-04-25 14:40] VITALS: BP_SYST 101
[2019-04-25] MEDS ORDERED: ONDANSETRON HCL 4 MG/2 ML VIAL IVP ONE ×2 (14:45→16:30)
[2019-04-25 15:30] LABS: EOSINOPHILS % (AUTO) 0.3 % (0.0-4.0); HEMATOCRIT 42.4 % (36-48); HEMOGLOBIN 14.4 g/dL (12.0-16.0); LYMPHOCYTES # (AUTO) 1.9 K/uL (1.0-5.5); LYMPHOCYTES % (AUTO) 45.6 % (20.5-51.5); MEAN CORPUSCULAR HEMOGLOBIN 34 pg (27-31); MEAN CORPUSCULAR HGB CONC 34 % (32-36); MEAN CORPUSCULAR VOLUME 101 fL (79.0-98.0); MONOCYTES # (AUTO) 0.3 K/uL (0.0-1.0); MONOCYTES % (AUTO) 8.1 % (1.7-9.3); PLATELET COUNT (AUTO) 140 K/uL (130-430); RED BLOOD CELL COUNT(AUTO) 4.21 MIL/uL (4.2-6.2); RED CELL DISTRIBUTION WIDTH 15.2 % (9.0-15.0); WHITE BLOOD COUNT (AUTO) 4.2 K/uL (4.8-10.8)
[2019-04-25 15:37] LABS: BASOPHILS % (AUTO) 0.5 % (0.0-2.0); NEUTROPHILS % (AUTO) 45.5 % (40.0-70.0)
[2019-04-25] MEDS ORDERED: ONDANSETRON HCL 4 MG/2 ML VIAL ONE (15:37)
[2019-04-25 16:28] LABS: CALCIUM 8.1 mg/dL (8.4-11.0); CREATININE 0.58 mg/dL (0.55-1.30)
[2019-04-25 16:30] LABS: PROTHROMBIN TIME 9.8 SECS (9.5-12.5)
[2019-04-25] MEDS ORDERED: LIDOCAINE/EPI 2% 1:100000 20 ML VIAL INJ ONE (16:30)
[2019-04-25] MEDS ORDERED: levETIRAcetam 1,000 MG in NS 100 ML IV ONE (16:30)
[2019-04-25] MEDS ORDERED: MORPHINE 2 MG/ML INJ. SYRINGE IVP ONE (16:30)
[2019-04-25 16:42] LABS: BILIRUBIN,URINE 1+ (NEGATIVE); CLARITY/URINE CLEAR (CLEAR); COLOR,URINE YELLOW (YELLOW); GLUCOSE,URINE NEGATIVE (NEGATIVE); KETONES,URINE 2+ (NEGATIVE); LEUKOCYTE ESTERASE ,URINE NEGATIVE (NEGATIVE); NITRITE, URINE POSITIVE (NEGATIVE); PROTEIN URINE 2+ (NEGATIVE); UROBILINOGEN,URINE 0.2 (0.2-1.0)
[2019-04-25 16:43] LABS: ALBUMIN 3.9 g/dL (3.4-4.8); TOTAL BILIRUBIN 0.3 mg/dL (0.0-1.0)
[2019-04-25 16:46] LABS: BLOOD, URINE TRACE (NEGATIVE)
[2019-04-25] MEDS ORDERED: MORPHINE 4 MG/ML INJ. SYRINGE ONE (16:49)
[2019-04-25 17:01] LABS: BACTERIA,URINE MODERATE /HPF (None Seen); MUCUS,URINE 2+ /LPF (None Seen); RBC,URINE 0-3 /HPF (0-3)
[2019-04-25 17:14] LABS: CKMB RELATIVE INDEX 5.3 (0.0-2.9); CREATINE KINASE MB 31.8 ng/mL (0-3.6)
[2019-04-25 17:31] LABS: BARBITURATE, URINE NEGATIVE (NEG <=200); BENZODIAZEPINE, URINE NEGATIVE (NEG <=150); CANNABINOID, URINE NEGATIVE (NEG <=50); COCAINE, URINE NEGATIVE (NEG <=150); METHAMPHETAMINES SCREEN,URINE NEGATIVE (NEG <=500); OPIATE, URINE NEGATIVE (NEG <=100); PHENCYCLIDINE SCREEN,URINE NEGATIVE (NEG <=25); UR TRICYCLIC ANTIDEPRESSANTS NEGATIVE (NEG <=300); URINE AMPHETAMINE NEGATIVE (NEG <=500); URINE METHADONE NEGATIVE (NEG <=200); URINE OXYCODONE SCREEN NEGATIVE (NEG <=100); URINE PROPOXYPHENE SCREEN NEGATIVE (NEG <=300)
[2019-04-25 18:10] VITALS: BP_SYST 103
== END 2019-04-25 18:10 | disposition short-term general hospital (02) ==
LOC: SED 14:29
DX: S01.01XA Laceration without foreign body of scalp, initial encounter (principal); N39.0 Urinary tract infection, site not specified; F10.129 Alcohol abuse with intoxication, unspecified; S02.19XA Other fracture of base of skull, initial encounter for closed fracture; F17.210 Nicotine dependence, cigarettes, uncomplicated; E78.00 Pure hypercholesterolemia, unspecified; Z79.01 Long term (current) use of anticoagulants; Z88.8 Allergy status to other drugs, medicaments and biological substances; Z79.899 Other long term (current) drug therapy; Y90.8 Blood alcohol level of 240 mg/100 ml or more; W19.XXXA Unspecified fall, initial encounter; Y93.9 Activity, unspecified; Y92.89 Other specified places as the place of occurrence of the external cause; Y99.8 Other external cause status
CPT/HCPCS: 12002; 36415; 70450; 71045; 80053; 80307; 81000; 82550; 82553; 84484; 85025; 85610; 85730; 87040; 87086; 87186; 93005; 96365; 96375; 96376; 99291; G0482; J1953; J2270; J2405

== ENCOUNTER 2019-07-20 13:34 | Emergency (ER) | payer MEDICAID ==
[~2019-07-20] VITALS: Ht 162.6 cm; Wt 53.5 kg
[2019-07-20 14:04] VITALS: BP_SYST 103
--- NOTE | 2019-07-20 14:10 | NUR ---
PATIENT PRESENTS TO THE ER WITH HX OF LYING ON THE FLOOR THIS MORNING AT 0930 WITH NO RECOLLECTION OF HOW SHE GOT THERE; LINOLIUM SURFACE; PATIENT STATES TRAUMA TO LEFT FOOT; NO OTHER TRAUMA, NO OTHER REMARKABLE S/S; PATIENT TO ER #7 AT 1400
--- NOTE | 2019-07-20 14:15 | NUR ---
ER Dr. Grey at bedside examining patient.
--- NOTE | 2019-07-20 14:38 | NUR ---
ER at bedside examining patient.
[2019-07-20] MEDS ORDERED: levETIRAcetam 500 MG IV PREMIX 100 ML IV ONE (14:45)
[2019-07-20] MEDS ORDERED: levETIRAcetam 500 MG TABLET PO ONE (14:45)
--- NOTE | 2019-07-20 14:45 | NUR ---
Patient bib nephew, stated woke up in the kitchen room. unable to recollect what happen.but stated before that she feel dizzy and weakness. cc of left foot swelling and pain. offered ice pack patient verbalized " I did cold compress earlier. i dont want it now." vital sign stable, afebrile.
--- NOTE | 2019-07-20 15:00 | NUR ---
# 22 gauge angiocath placed to left ac. Use of asceptic technique. Opsite placed over site. Blood return noted. Blood for lab drawn from site. Flushed with 10 cc of normal saline. No evidence of infiltration noted. Patient tolerated well.
--- NOTE | 2019-07-20 15:05 | NUR ---
left foot xray done at bedside.
--- NOTE | 2019-07-20 15:20 | NUR ---
medication ordered administered.
[2019-07-20] MEDS ORDERED: KETOROLAC TROMETHAMINE 30 MG VIAL IVP ONE (15:30)
[2019-07-20 15:36] LABS: BASOPHILS % (AUTO) 0.7 % (0.0-2.0); CREATININE 0.49 mg/dL (0.55-1.30); EOSINOPHILS % (AUTO) 0.1 % (0.0-4.0); HEMATOCRIT 38.8 % (36-48); HEMOGLOBIN 12.5 g/dL (12.0-16.0); LYMPHOCYTES # (AUTO) 1.5 K/uL (1.0-5.5); LYMPHOCYTES % (AUTO) 28.6 % (20.5-51.5); MEAN CORPUSCULAR HEMOGLOBIN 29 pg (27-31); MEAN CORPUSCULAR HGB CONC 32 % (32-36); MEAN CORPUSCULAR VOLUME 90 fL (79.0-98.0); MONOCYTES # (AUTO) 0.2 K/uL (0.0-1.0); MONOCYTES % (AUTO) 4.3 % (1.7-9.3); NEUTROPHILS # (AUTO) 3.4 K/uL (1.8-7.7); NEUTROPHILS % (AUTO) 66.3 % (40.0-70.0); PLATELET COUNT (AUTO) 177 K/uL (130-430); POTASSIUM 3.5 mmol/L (3.5-5.1); RED BLOOD CELL COUNT(AUTO) 4.29 MIL/uL (4.2-6.2); RED CELL DISTRIBUTION WIDTH 20.2 % (9.0-15.0); WHITE BLOOD COUNT (AUTO) 5.1 K/uL (4.8-10.8)
[2019-07-20 15:47] LABS: ALBUMIN 3.4 g/dL (3.4-4.8); TOTAL BILIRUBIN 0.4 mg/dL (0.0-1.0)
--- NOTE | 2019-07-20 17:08 | NUR ---
Patient given written and verbal discharge instructions and verbalizes understanding. ER MD Grey discussed with patient the results and treatment provided. Patient in stable condition. ID arm band removed. IV catheter removed intact and dressing applied, no active bleeding. Rx of Keppra given. Patient educated on pain management and to follow up with PMD. Pain Scale 0. Opportunity for questions provided and answered. Medication side effect fact sheet provided.
[2019-07-20 17:09] VITALS: BP_SYST 109
== END 2019-07-20 17:09 | disposition home or self-care (01) ==
LOC: SED 13:34
DX: S93.602A Unspecified sprain of left foot, initial encounter (principal); R56.9 Unspecified convulsions; E78.00 Pure hypercholesterolemia, unspecified; F17.290 Nicotine dependence, other tobacco product, uncomplicated; Z88.8 Allergy status to other drugs, medicaments and biological substances; W18.39XA Other fall on same level, initial encounter; Y93.89 Activity, other specified; Y92.89 Other specified places as the place of occurrence of the external cause; Y99.8 Other external cause status
CPT/HCPCS: 36415; 73630; 80053; 85025; 96365; 96375; 99284; J1885; J1953; J7030; 99283

== ENCOUNTER 2020-04-02 10:05 | Emergency (ER) | payer MEDICAID ==
[~2020-04-02] VITALS: Ht 162.6 cm; Wt 68.0 kg
[2020-04-02 10:05] VITALS: BP_SYST 155
--- NOTE | 2020-04-02 10:05 | NUR ---
Placed in room 5. Placed on pattern shop supervisor, blood pressure machine and pulse oximeter. To gown for exam. Side rails up. Report given to JOSE Ball.
--- NOTE | 2020-04-02 10:06 | NUR ---
RECEIEVED PT IN ROOM 3, BROUGHT IN BY AMBULANCE FROM HOME. PT ALERT, ABLE TO RESPOND TO SIMPLE QUESTIONS. "DID I HAVE A SEIZURE?" PT ASKED. PT SUPPOSED TO HAVE SURGERY TODAY FOR THE WOUND TO HER LEFT EVANGELICAL. NOTED WITH OPENED WOUND TO LEFT EVANGELICAL, BITE DICKEY TO UPPER LIP AND LEFT FOOT TOP SIDE SKIN TEAR. Addendum: 04/02/20 at 1214 by OMKAR in room 2.
--- NOTE | 2020-04-02 10:13 | NUR ---
ER at bedside examining patient.
[2020-04-02] MEDS ORDERED: levETIRAcetam 500 MG TABLET PO ONE (10:15)
--- NOTE | 2020-04-02 10:25 | NUR ---
BLOOD SAMPLE DRAWN BY SHRIMP PEELER
[2020-04-02 10:37] LABS: BASOPHILS % (AUTO) 0.7 % (0.0-2.0); EOSINOPHILS % (AUTO) 0.3 % (0.0-4.0); HEMATOCRIT 38.9 % (36-48); HEMOGLOBIN 12.9 g/dL (12.0-16.0); LYMPHOCYTES # (AUTO) 1.4 K/uL (1.0-5.5); LYMPHOCYTES % (AUTO) 19.6 % (20.5-51.5); MEAN CORPUSCULAR HEMOGLOBIN 31 pg (27-31); MEAN CORPUSCULAR HGB CONC 33 % (32-36); MEAN CORPUSCULAR VOLUME 94 fL (79.0-98.0); MONOCYTES # (AUTO) 0.4 K/uL (0.0-1.0); MONOCYTES % (AUTO) 6.3 % (1.7-9.3); NEUTROPHILS # (AUTO) 5.1 K/uL (1.8-7.7); NEUTROPHILS % (AUTO) 73.1 % (40.0-70.0); PLATELET COUNT (AUTO) 194 K/uL (130-430); RED BLOOD CELL COUNT(AUTO) 4.12 MIL/uL (4.2-6.2); RED CELL DISTRIBUTION WIDTH 20.9 % (9.0-15.0)
--- NOTE | 2020-04-02 10:45 | NUR ---
URINE SAMPLE SENT TO LAB FOR TEST.
[2020-04-02 10:46] LABS: CREATININE 0.82 mg/dL (0.55-1.30); POTASSIUM 3.3 mmol/L (3.5-5.1)
[2020-04-02 11:00] LABS: ALBUMIN 3.4 g/dL (3.4-4.8); TOTAL BILIRUBIN 0.5 mg/dL (0.0-1.0)
[2020-04-02] MEDS ORDERED: ACETAMINOPHEN 325 MG TABLET PO ONE (11:00)
[2020-04-02 11:12] LABS: BARBITURATE, URINE NEGATIVE (NEG <=200); BENZODIAZEPINE, URINE NEGATIVE (NEG <=150); CANNABINOID, URINE NEGATIVE (NEG <=50); COCAINE, URINE NEGATIVE (NEG <=150); METHAMPHETAMINES SCREEN,URINE NEGATIVE (NEG <=500); OPIATE, URINE NEGATIVE (NEG <=100); PHENCYCLIDINE SCREEN,URINE NEGATIVE (NEG <=25); UR TRICYCLIC ANTIDEPRESSANTS NEGATIVE (NEG <=300); URINE AMPHETAMINE NEGATIVE (NEG <=500); URINE METHADONE NEGATIVE (NEG <=200); URINE OXYCODONE SCREEN NEGATIVE (NEG <=100); URINE PROPOXYPHENE SCREEN NEGATIVE (NEG <=300)
--- NOTE | 2020-04-02 11:27 | NUR ---
TRANSPORTED VIA GURWINTERS TO CT SCAN DEPT.
--- NOTE | 2020-04-02 12:10 | NUR ---
Patient asleep at this hour.
--- NOTE | 2020-04-02 13:00 | NUR ---
Patient given written and verbal discharge instructions and verbalizes understanding. ER MD Omer discussed with patient the results and treatment provided. Patient in stable condition. ID arm band removed. IV catheter removed intact and dressing applied, no active bleeding. Patient educated on pain management and to follow up with PMD. Pain Scale 0. Opportunity for questions provided and answered. Medication side effect fact sheet provided.
[2020-04-02 13:07] VITALS: BP_SYST 108
[2020-04-02] MEDS ORDERED: LEVE500T9 PO (14:18)
== END 2020-04-02 13:00 | disposition home or self-care (01) ==
LOC: SED 10:05
DX: G40.909 Epilepsy, unspecified, not intractable, without status epilepticus (principal); E78.00 Pure hypercholesterolemia, unspecified; F41.9 Anxiety disorder, unspecified; Z88.1 Allergy status to other antibiotic agents
CPT/HCPCS: 36415; 70450; 80053; 80307; 85025; 99284; G0482

== ENCOUNTER 2020-04-02 13:55 | Inpatient (IN) | payer MEDICAID, SELFPAY ==
[~2020-04-02] VITALS: Ht 162.6 cm; Wt 68.0 kg
[2020-04-02 13:55] VITALS: BP_SYST 139
--- NOTE | 2020-04-02 13:55 | NUR ---
Placed in room 2. Placed on property assessment monitor, blood pressure machine and pulse oximeter. To gown for exam. Side rails up. Report given to JOSE Ball.
--- NOTE | 2020-04-02 13:58 | NUR ---
ER at bedside examining patient.
--- NOTE | 2020-04-02 13:59 | NUR ---
PT IN ROOM 2, PT WAS DISCHARGED EARLIER, REPORT SAID SHE HAD A SEIZURE AT HOME. PATIENT RESPONSIVE TO VERBAL COMMAND, OPENS HER EYES DURING INTERACTION, ALL EXTREMITIES ACTIVE.
[2020-04-02] MEDS ORDERED: levETIRAcetam 1,000 MG IV BAG 100 ML IV ONE (14:00)
--- NOTE | 2020-04-02 14:05 | NUR ---
MRSA AND COVID SWABS DONE.
[2020-04-02] MEDS ORDERED: LEVE500T9 PO (14:18)
--- NOTE | 2020-04-02 14:18 | NUR ---
Medication reconciliation completed with information provided by patient and [facility]. Any prior medication reconciliation on file was reviewed and corrected.
--- NOTE | 2020-04-02 14:42 | NUR ---
Patient will be admitted to care of Dr. Zhang. Admitted to telemetry unit. Waiting for room assignment. Belongings list completed. Complete and up to date summary report printed. SBAR report to be given at bedside with opportunity for questions.
[2020-04-02] MEDS ORDERED: LORazepam 2 MG/ML VIAL IVP ONE (14:45)
[2020-04-02] MEDS ORDERED: LORazepam 2 MG/ML VIAL IVP PRN (15:15)
[2020-04-02] MEDS ORDERED: BANANA BAG 1 EA, FOLIC ACID 1 MG, THIAMINE HCL 100 MG, MAGNESIUM SULFATE 1 GM, MVI 10 M... IV SCH ×5 (15:15)
--- NOTE | 2020-04-02 16:30 | NUR ---
PT TRANSPORTED TO TELEMETRY DEPT ROOM 110-B, VIA GURNEY, ON PORTABLE CARDIAC MONITORING AND CONTINUOUS OXIGEN, REPORT GIVEN TO JOSE JAMES. ALL PERSONAL BELONGINGS TAKEN TO THE ASSIGNED ROOM.
--- NOTE | 2020-04-02 16:35 | NUR ---
Admission Note Received patient from ER with diagnosis of Alcohol Withdrawal. Put on telemetry.Bilateral padded side rails on,for Seizure precaution.Initial Plan of Care discussed-patient verbalized understanding. Personal belongings check and recorded. Oriented to room, call light, pain management and safety.
[2020-04-02 16:40] VITALS: BP_SYST 134
[2020-04-02] MEDS ORDERED: THIAMINE HCL 100 MG, MAGNESIUM SULFATE 1 GM in NS 100 ML IV SCH (17:00)
[2020-04-02] MEDS ORDERED: FOLIC ACID 1 MG, MVI 10 ML in NACL 0.9% 1,000 ML IV SCH (17:00)
--- NOTE | 2020-04-02 17:50 | NUR ---
Repeat Rapid Covid test: Per lab ,specimen not valid due to lots of blood in it .Obtained another rapid covid test ,patient very hesitant.Will send to lab as ordered.
--- NOTE | 2020-04-02 18:30 | NUR ---
Latrice GRAFF started by RN @ [phone], completed @ [id number].
--- NOTE | 2020-04-02 18:35 | NUR ---
Closing notes: Patient resting. Banana bag with Thiamine on going as ordered. Maintained nothing by mouth. Bilateral padded side rails on.Call light with in reach. Bed locked at lowest position. No seizures noted this time.
--- NOTE | 2020-04-02 19:15 | NUR ---
OPENING NOTE BEDSIDE REPORT RECEIVED FROM DAYSHIFT NURSE. PATIENT RECEIVED LYING IN BED, RESTING, NO S/S OF ACUTE DISTRESS NOTED. BREATHING IS EVEN AND UNLABORED. PATIENT DENIES PAIN. HOB RAISED, IVF INFUSING WELL, IV SITE IS PATENT, NO SIGNS OF INFILTRATION OR INFECTION NOTED. SEIZURE PADS ATTACHED TO SIDE RAILS. CALL LIGHT WITH PATIENT. BED ALARM ON. BED IS LOCKED AND AT LOWEST POSITION. WILL CONTINUE TO MONITOR.
[2020-04-02 20:00] VITALS: BP_SYST 130
[2020-04-02] MEDS: levETIRAcetam 500 MG in NS 100 ML IV SCH (20:24)
--- NOTE | 2020-04-02 21:00 | NUR ---
ROUNDS PATIENT IN BED, EYES CLOSED, APPEARS TO BE ASLEEP. NO SIGNS OF DISCOMFORT NOTED. CHEST RISE AND FALL EVEN BILATERALLY. IVF INFUSING WELL. BED ALARM ON. CALL LIGHT WITH PATIENT. WILL CONTINUE TO MONITOR.
[2020-04-02] MEDS ORDERED: [UNRECOGNIZED DRUG - OTHER] I.M. PRN (22:00)
--- NOTE | 2020-04-02 23:00 | NUR ---
NEW IV PATIENT COMPLAINING OF PAIN AT IV SITE AT RIGHT HAND, REMOVED AT THIS TIME, CATHETER FULLY INTACT, NO ACTIVE BLEEDING NOTED. NEW IV INSERTED AT RIGHT FOREARM, 22GAUGE, PATIENT TOLERATED WELL, IVF INFUSING WELL, NO SIGNS OF INFILTRATION, WILL MONITOR THROUGHOUT SHIFT. ALL NEEDS MET AT THIS TIME. CALL LIGHT WITH PATIENT. BED ALARM ON. WILL CONTINUE TO MONITOR.
[2020-04-02] MEDS: D5NS 1,000 ML IV SCH (23:38)
[2020-04-03] VITALS: BP_SYST 130
[2020-04-03] MEDS: D5NS 1,000 ML IV SCH ×2 (00:44→09:02)
--- NOTE | 2020-04-03 01:00 | NUR ---
ROUNDS PATIENT IN BED, SLEEPING COMFORTABLY. NO SIGNS OF DISCOMFORT. CHEST RISE AND FALL EVEN BILATERALLY. IVF INFUSING WELL. BED ALARM ON. CALL LIGHT WITH PATIENT. WILL CONTINUE TO MONITOR.
--- NOTE | 2020-04-03 03:00 | NUR ---
ROUNDS PATIENT IN BED ASLEEP AT THIS TIME. NO CHANGE FROM PREVIOUS CONDITION. ALL NEEDS MET. BED ALARM ON. WILL CONTINUE TO MONITOR.
--- NOTE | 2020-04-03 05:00 | NUR ---
LAB DRAW AIRBORNE SENSOR SPECIALIST AT BEDSIDE AT THIS TIME, DRAWING BLOOD. PATIENT TOLERATING WELL. ALL NEEDS MET. CALL LIGHT WITH PATIENT. BED ALARM ON. WILL CONTINUE TO MONITOR.
[2020-04-03] MEDS ORDERED: MORPHINE 4 MG/ML INJ. SYRINGE IVP PRN (05:45)
[2020-04-03] MEDS ORDERED: METOCLOPRAMIDE HCL 10 MG/2 ML VIAL IVP PRN (05:45)
[2020-04-03] MEDS ORDERED: ONDANSETRON HCL 4 MG/2 ML VIAL IVP PRN (05:45)
[2020-04-03] MEDS: MORPHINE 2 MG/ML INJ. SYRINGE IVP PRN ×2 (05:54→11:55)
--- NOTE | 2020-04-03 06:09 | NUR ---
CLOSING NOTE/PAIN PATIENT IN BED, AWAKE, COMPLAINED OF PAIN, PRN MEDICATION ADMINISTERED. BREATHING IS EVEN AND UNLABORED. HOB RAISED. IVF INFUSING WELL, IV SITE IS PATENT, NO SIGNS OF INFILTRATION OR INFECTION NOTED. ALL NEEDS MET THROUGHOUT SHIFT. FALL, SAFETY, AND SEIZURE PRECAUTIONS MAINTAINED THROUGHOUT SHIFT. WILL CONTINUE TO MONITOR UNTIL PATIENT CARE IS ENDORSED TO ONCOMING DAYSHIFT NURSE.
[2020-04-03 06:55] LABS: BASOPHILS # (AUTO) 0.1 K/uL (0.0-0.2); BASOPHILS % (AUTO) 0.8 % (0.0-2.0); EOSINOPHILS # (AUTO) 0.1 K/uL (0.0-0.4); EOSINOPHILS % (AUTO) 1.6 % (0.0-4.0); HEMATOCRIT 39.8 % (36-48); HEMOGLOBIN 13.4 g/dL (12.0-16.0); LYMPHOCYTES # (AUTO) 2.2 K/uL (1.0-5.5); LYMPHOCYTES % (AUTO) 31.2 % (20.5-51.5); MEAN CORPUSCULAR HEMOGLOBIN 32 pg (27-31); MEAN CORPUSCULAR HGB CONC 34 % (32-36); MEAN CORPUSCULAR VOLUME 94 fL (79.0-98.0); MONOCYTES # (AUTO) 0.4 K/uL (0.0-1.0); MONOCYTES % (AUTO) 6.1 % (1.7-9.3); NEUTROPHILS # (AUTO) 4.3 K/uL (1.8-7.7); NEUTROPHILS % (AUTO) 60.3 % (40.0-70.0); PLATELET COUNT (AUTO) 170 K/uL (130-430); RED BLOOD CELL COUNT(AUTO) 4.22 MIL/uL (4.2-6.2); RED CELL DISTRIBUTION WIDTH 20.4 % (9.0-15.0); WHITE BLOOD COUNT (AUTO) 7.1 K/uL (4.8-10.8)
[2020-04-03 07:10] LABS: ALBUMIN 3.2 g/dL (3.4-4.8); CALCIUM 7.5 mg/dL (8.4-11.0); CREATININE 0.56 mg/dL (0.55-1.30); POTASSIUM 3.3 mmol/L (3.5-5.1); TOTAL BILIRUBIN 0.8 mg/dL (0.0-1.0)
--- NOTE | 2020-04-03 07:19 | NUR ---
AM ROUNDS: BEDSIDE REPORT RECEIVED FROM NIGHT NURSE ANIKET.PATIENT ON THE BED,AWAKE,ALERT AND ORIENTED X4. OSCAR LIGHT WITH IN REACH. BED LOCKED AT LOWEST POSITION. PADDED SIDE RAILS ON. STABLE.
[2020-04-03 08:05] VITALS: BP_SYST 141
[2020-04-03] MEDS ORDERED: PARoxetine HCL 20 MG TABLET PO SCH (09:00)
[2020-04-03] MEDS: levETIRAcetam 500 MG in NS 100 ML IV SCH (09:05)
--- NOTE | 2020-04-03 10:50 | NUR ---
MD ROUNDS: PATIENT SEEN BY DR YO IN THE ROOM.WITH ORDERS MAY HAVE REGULAR DIET, DC TELEMETRY AND FOR NEUROLOGY CONSULT.
--- NOTE | 2020-04-03 10:51 | NUR ---
CONSULT NEUROLOGY SEIZURES NOEL COLON SENT TEXT TO FOR ROSALES
[2020-04-03] MEDS ORDERED: chlordiazePOXIDE HCL 25 MG CAPSULE PO ONE (11:00)
--- NOTE | 2020-04-03 11:00 | NUR ---
DC TELEMETRY: DOWNGRADE PATIENT TO MEDICAL SURGICAL ORDERED BY .
--- NOTE | 2020-04-03 11:54 | NUR ---
SS NOTES: UTILIZATION REVIEW NURSE was referred by SS to see patient for alcohol withdrawal and DCP. UTILIZATION REVIEW NURSE met with patient at bedside to conduct assessment and referral. Pt states she lives at home with her boyfriend and her son. Pt is independent with her ADL's and uses a walker to ambulate around the community. Pt owns a wheelchair and bedside commode at home. Pt states she lives in a 2 [address] home with 2 steps to get to the front door and 13 steps in between floors. Pt states she does not have any source of income. Pt disclosed that she applied for SSI in the past, but was denied and will apply again. Pt states she has a history of ETOH, but has stayed sober for 6 months and started binge drinking 8 days ago. Her trigger was due to her son having a seizure disorder. Pt states she stayed sober for 6 months with the help of self-help books. Pt also has a history of detox admission, last one was in [place], [place] where she stayed for the duration of the treatment of 30 days. Pt states her goal is to go home and remain or stay sober. Pt denies any mental health history, and depression. Pt was alert and oriented x4. Pt was calm and cooperative throughout the conversation. Pt's mood was within the normal limits and affect is congruent. Pt is coping fair. Pt has good insight and judgement. Pt has good family support system at home. UTILIZATION REVIEW NURSE provided patient with mental health resource and substance abuse resource. No further SS needs identified, but will remain available when needed.
--- NOTE | 2020-04-03 11:59 | NUR ---
PAIN MEDS: C/O GENERALIZED PAIN AND DUE IV PAIN MEDS GIVEN PER REQUEST. NO PROBLEM.
[2020-04-03 12:00] VITALS: BP_SYST 115
--- NOTE | 2020-04-03 14:32 | NUR ---
RN ROUNDS: PATIENT SLEEPING DURING ROUNDS. NO SEIZURES NOTED,PRECAUTION RENDERED.
[2020-04-03] MEDS ORDERED: chlordiazePOXIDE HCL 25 MG CAPSULE PO SCH (15:00)
--- NOTE | 2020-04-03 15:13 | NUR ---
Nutrition Update Tamir Scale 18 noted. Pt admitted for alcohol withdrawal Diet: regular BMI: 25.7 kg/m2 RD to follow per nutrition care standards.
[2020-04-03 16:00] VITALS: BP_SYST 128
--- NOTE | 2020-04-03 16:20 | NUR ---
RN ROUNDS: PATIENT SITTING ON THE BED,WATCHING TV. NO SEIZURES NOTED THIS TIME.
--- NOTE | 2020-04-03 18:00 | NUR ---
AMA: Patient does not wish to proceed with medical care recommended by Dr. Zhang. Patient given information related to possible complications, up to and including , which could occur as a result of leaving hospital at this time. Patient verbalizes understanding of risks involved leaving against medical advice. Iv removed,dry gauze applied,no bleeding noted. Patient has signed AMA form.
--- NOTE | 2020-04-03 19:20 | NUR ---
PAGED: SPOKE WITH DR YO AND INFORMED HIM PATIENT WENT AMA.
== END 2020-04-03 17:49 | disposition left against medical advice (07) | DRG 53 ==
LOC: SED 13:55 → STU 14:40
PROVIDERS: ADMIT Internal Medicine Hospice and Palliative Medicine; ATTEND Internal Medicine Hospice and Palliative Medicine
DX: R56.9 Unspecified convulsions (principal); F10.20 Alcohol dependence, uncomplicated; F17.200 Nicotine dependence, unspecified, uncomplicated; Y90.9 Presence of alcohol in blood, level not specified; E78.00 Pure hypercholesterolemia, unspecified; F41.9 Anxiety disorder, unspecified; Z20.828 Contact with and (suspected) exposure to other viral communicable diseases; F32.9 Major depressive disorder, single episode, unspecified; Z53.29 Procedure and treatment not carried out because of patient's decision for other reasons; Z88.8 Allergy status to other drugs, medicaments and biological substances; E44.0 Moderate protein-calorie malnutrition
CPT/HCPCS: 36415; 80053; 85025; 87081; 96365; 96375; 99285; G0378; J1953; J2060; J2270; J3411; J3475; J3490; J7030; J7042

== ENCOUNTER 2020-06-12 15:58 | Emergency (ER) | payer MEDICAID, SELFPAY ==
[~2020-06-12] VITALS: Ht 162.6 cm; Wt 49.9 kg
[2020-06-12 15:58] VITALS: BP_SYST 119
[~2020-06-12 15:58] MED LIST changes: +LEVE500T9 PO; -METO-442 PO
--- NOTE | 2020-06-12 16:00 | NUR ---
BROUGHT IN BY [place] [id number] AND [facility], TRIAGED AND AWAITING OPEN ER BED.
--- NOTE | 2020-06-12 16:25 | NUR ---
Placed in room 4 . Placed on telemetry monitor, blood pressure machine and pulse oximeter. To gown for exam. Side rails up. SEIZURE PADS IN PLACE
--- NOTE | 2020-06-12 16:30 | NUR ---
ER DR. LEONARD AT THE BEDSIDE EVALUATING PT
--- NOTE | 2020-06-12 16:35 | NUR ---
PT BIBA FROM HOME AFTER HAVING A SEIZURE. PT ADMITS TO DRINKING ALCOHOL TODAY. REPORTS BEING COMPLIANT WITH HER KEPPRA AT HOME AND HAS HAD 7 SEIZURES IN THE LAST 6 MONTHS. PT HAS A HEALING INCISION TO HER LEFT SIDE OF SCALP WITH YOVANNY- EDGES ARE CLEAN AND APPROXIMATED WITH NO REDNESS OR DRAINAGE. STATES SHE HAD A BLOOD CLOT AND BRAIN DAMAGE FROM APR 2019. PT IS AAOX4, STUTTERED SPEECH, V/S STABLE Addendum: 06/12/20 at 1648 by [email or web address] PT BIBA FROM HOME AFTER HAVING A SEIZURE. PT ADMITS TO DRINKING ALCOHOL TODAY. REPORTS BEING COMPLIANT WITH HER KEPPRA AT HOME AND HAS HAD 7 SEIZURES IN THE LAST 6 MONTHS. PT HAS A HEALING INCISION TO HER LEFT SIDE OF SCALP WITH YOVANNY- EDGES ARE CLEAN AND APPROXIMATED WITH NO REDNESS OR DRAINAGE-HAD BRAIN SURGURY 3 WEEKS AGO. STATES SHE HAD A BLOOD CLOT AND BRAIN DAMAGE FROM APR 2019. PT IS AAOX4, STUTTERED SPEECH, V/S STABLE
--- NOTE | 2020-06-12 16:53 | NUR ---
Patient transported to radiology via GURNEY, accompanied by STAFF.
[2020-06-12] MEDS: traMADol HCL HCL 50 MG TABLET (ULTRAM) PO ONE (17:14)
--- NOTE | 2020-06-12 17:19 | NUR ---
LAB AT THE BEDSIDE FOR BLOOD DRAW
[2020-06-12 17:27] LABS: BASOPHILS # (AUTO) 0.1 K/uL (0.0-0.2); BASOPHILS % (AUTO) 1.9 % (0.0-2.0); EOSINOPHILS # (AUTO) 0.1 K/uL (0.0-0.4); EOSINOPHILS % (AUTO) 2.5 % (0.0-4.0); HEMATOCRIT 39.9 % (36-48); HEMOGLOBIN 13.2 g/dL (12.0-16.0); LYMPHOCYTES # (AUTO) 2.4 K/uL (1.0-5.5); LYMPHOCYTES % (AUTO) 54.6 % (20.5-51.5); MEAN CORPUSCULAR HEMOGLOBIN 32 pg (27-31); MEAN CORPUSCULAR HGB CONC 33 % (32-36); MEAN CORPUSCULAR VOLUME 97 fL (79.0-98.0); MONOCYTES # (AUTO) 0.5 K/uL (0.0-1.0); NEUTROPHILS # (AUTO) 1.3 K/uL (1.8-7.7); PLATELET COUNT (AUTO) 157 K/uL (130-430); RED BLOOD CELL COUNT(AUTO) 4.13 MIL/uL (4.2-6.2); RED CELL DISTRIBUTION WIDTH 18.2 % (9.0-15.0); WHITE BLOOD COUNT (AUTO) 4.4 K/uL (4.8-10.8)
[2020-06-12 17:58] LABS: CALCIUM 8.2 mg/dL (8.4-11.0); CREATININE 0.68 mg/dL (0.55-1.30); POTASSIUM 3.7 mmol/L (3.5-5.1)
[2020-06-12 18:03] LABS: ALBUMIN 3.6 g/dL (3.4-4.8); TOTAL BILIRUBIN 0.2 mg/dL (0.0-1.0)
[2020-06-12 18:35] VITALS: BP_SYST 119
[2020-06-12] MEDS: HYDROcodone/ACETAMIN 5-325 MG TAB (NORCO/ VICODIN) PO ONE (18:42)
== END 2020-06-12 18:35 | disposition home or self-care (01) ==
LOC: SED 15:58
DX: R56.9 Unspecified convulsions (principal); F10.129 Alcohol abuse with intoxication, unspecified; E78.00 Pure hypercholesterolemia, unspecified; F41.9 Anxiety disorder, unspecified; Z88.1 Allergy status to other antibiotic agents
CPT/HCPCS: 36415; 70450-TC; 76376; 80053; 85025; 99284